=== PATIENT | female | born 1950 | race Caucasian/White ===

== ENCOUNTER 2018-10-12 14:19 | Outpatient (CLI) | payer MEDICARE, BC, SELFPAY ==
--- NOTE | 2018-10-12 14:03 | DI.RAD_ITS ---
SYMPTOMS/DIAGNOSIS: SHOULDER PAIN LEFT SHOULDER: Four views were obtained. There are moderate hypertrophic degenerative changes of the acromioclavicular joint. Prominent inferior humeral head spurring noted and mild marginal osteophyte formation on the glenoid noted. Cartilaginous joint space of the glenohumeral joint appears fairly well maintained. CONCLUSION: Degenerative changes as described above.
== END 2018-10-12 14:39 ==
PROVIDERS: Visit Provider Student in an Organized Health Care Education/Training Program
DX: M19.012 Primary osteoarthritis, left shoulder (principal); M25.512 Pain in left shoulder; M75.82 Other shoulder lesions, left shoulder; I10 Essential (primary) hypertension
CPT/HCPCS: 20610; 99203; 99213; 73030; J1040

== ENCOUNTER 2021-07-09 15:15 | Outpatient (CLI) | payer MEDICARE, SELFPAY ==
--- NOTE | 2021-07-09 15:00 | DI.RAD_ITS ---
Exam(s) XR KNEE LT 3V AP,LAT,TOMMY EXAM: XR KNEE LT 3V AP,LAT,TOMMY CLINICAL HISTORY: knee pain. TECHNIQUE: 2D digital imaging was performed. Three views. COMPARISON: CR XR KNEE RT 3V AP,LAT,TOMMY from 07/09/2021 FINDINGS: BONES: No acute fracture is present. No bony destructive lesion is seen. JOINTS: Severe narrowing, [id number] appearance medial femoral tibial joint and patellofemoral join t. Prominent periarticular spurring. Varus angulation. No joint effusion is seen. IMPRESSION: Severe degenerative changes. DATA REPOSITORY: RADIATION DOSE DELIVERED:
--- NOTE | 2021-07-09 15:00 | DI.RAD_ITS ---
Exam(s) XR KNEE RT 3V AP,LAT,TOMMY EXAM: XR KNEE RT 3V AP,LAT,TOMMY CLINICAL HISTORY: knee pain. TECHNIQUE: 2D digital imaging was performed. Three views. COMPARISON: No exams were available for comparison FINDINGS: BONES: No acute fracture is present. No bony destructive lesion is seen. JOINTS: Severe degenerative changes medial femoral tibial joint and at the patellofemoral joint. Pro minent periarticular spurring. No joint effusion is seen. IMPRESSION: Severe degenerative changes. DATA REPOSITORY: RADIATION DOSE DELIVERED:
== END 2021-07-09 15:16 | disposition home or self-care (01) ==
LOC: DIORS 15:15
PROVIDERS: PCP Family Medicine; Referring Provider Family Medicine; Visit Provider Student in an Organized Health Care Education/Training Program
DX: M17.12 Unilateral primary osteoarthritis, left knee (principal); M75.82 Other shoulder lesions, left shoulder; M25.562 Pain in left knee; M19.012 Primary osteoarthritis, left shoulder; M17.11 Unilateral primary osteoarthritis, right knee
CPT/HCPCS: 20610; 73562; J1040

== ENCOUNTER 2021-08-27 15:29 | Outpatient (CLI) | payer MEDICARE, SELFPAY ==
--- NOTE | 2021-08-27 15:15 | DI.RAD_ITS ---
Exam(s) XR SHOULDER LT COMPLETE 2+V EXAM: XR SHOULDER LT COMPLETE 2+V CLINICAL HISTORY: left shoulder pain. TECHNIQUE: 2D digital imaging was performed. COMPARISON: CR XR shoulder LT complete 2+V from 10/12/2018 FINDINGS: 3 views There is no evidence of acute fracture or dislocation. No abnormal soft tissue calcifications. Main finding is degenerative change in the glenohumeral joint with a moderate size osteophyte off the inferior articular surface of the humeral head again noted. Lesser amount of degenerative change in the AC joint is again noted. No ominous osseous lesions. IMPRESSION: Degenerative changes in the glenohumeral joint again noted. DATA REPOSITORY: RADIATION DOSE DELIVERED:
== END 2021-08-27 15:30 | disposition home or self-care (01) ==
LOC: DIORS 15:30
PROVIDERS: PCP Family Medicine; Visit Provider Student in an Organized Health Care Education/Training Program
DX: M75.82 Other shoulder lesions, left shoulder (principal); M19.012 Primary osteoarthritis, left shoulder; M25.562 Pain in left knee
CPT/HCPCS: 99212; 73030

== ENCOUNTER → 2021-09-06 02:15 | Outpatient (CLI) | payer MEDICARE, SELFPAY ==
--- NOTE | 2021-09-06 15:20 | DI.RAD_ITS ---
Exam(s) RF JOINT INJECTION FLUORO GUID EXAM: RF JOINT INJECTION FLUORO GUID CLINICAL HISTORY: L SHOULDER INJ UNDER FLUORO,PRIMARY OA, TENDINITIS,M75.82,M19.012 TECHNIQUE: Fluoroscopy provided. Radiologist not present. CONTRAST MATERIAL: None COMPARISON: No exams were available for comparison FINDINGS: Fluoroscopy was provided for therapeutic shoulder injection. Submitted image(s) reveal needle placement into the glenohumeral joint via anterior approach and intr a-articular contrast injection Please refer to the procedure report for complete details. Cumulative Dose: Ka,r=0.825 mGy IMPRESSION: RADIATION DOSE DELIVERED:
[2021-09-06] MEDS: Omnipaque 300 MG/ML 10 ML BTL IJ (15:33)
[2021-09-06] MEDS: Bupivacaine 0.5% Pres-Free 30 ML VIAL IJ (15:33)
[2021-09-06] MEDS: methylPREDNISolone ACETATE 80 MG/ML VIAL IM (15:33)
--- NOTE | 2021-09-06 20:43 | W.PROCNOTE ---
Date of service: 09/06/21 Time of Service: 15:35 Procedure Note Date of procedure: 09/06/21 Procedure: Left Shoulder Injection Surgeon/Proceduralist/Physician: Rodolfo Radford Procedure Diagnosis: Left Glenohumeral Arthritis Procedure Indications: Brandy has had persistent pain of the LEFT shoulder. Noninvasive measures have been tried. To serve as both diagnostic and therapeutic, an injection under fluoroscopy was recommended. I had discussed the risks of the procedure and the patient elected to proceed. Procedure Description: Brandy was greeted in the flouroscopy room. The correct side was identified and the consent was reviewed with the patient and signed. The patient was then placed in the supine position on the fluoroscopy table. The LEFT shoulder was then prepped with Chloraprep. The anterior injection starting point was identiifed by bony landmarks and fluoroscopy. The skin and soft tissue in the tract of the injection was anesthetized with 1% Lidocaine. A spinal needle was then inserted deep into the shoulder joint at the level of the recess between the glenoid and superior humeral head. A small amount of Omnipaque solution was injected to confirm intraarticular placement. Once confirmed, the shoulder was injected with 4cc of 0.5% Bupivicaine and 80mg of Depo-Medrol. A bandaid was placed on the injection site. The patient tolerated the procedure well.
== END ==
PROVIDERS: PCP Family Medicine; Visit Provider Student in an Organized Health Care Education/Training Program
DX: M19.012 Primary osteoarthritis, left shoulder (principal); M75.82 Other shoulder lesions, left shoulder; M25.512 Pain in left shoulder
CPT/HCPCS: 20610; 77002; J1040

== ENCOUNTER 2022-05-17 11:06 | Outpatient (CLI) | payer MEDICARE, SELFPAY ==
--- NOTE | 2022-05-17 10:45 | DI.RAD_ITS ---
Exam(s) XR SHOULDER RT COMPLETE 2+V EXAM: XR SHOULDER RT COMPLETE 2+V CLINICAL HISTORY: right shoulder pain. TECHNIQUE: 2D digital imaging was performed of the right shoulder. Two images were obtained. AP an d axillary views were obtained. COMPARISON: None. FINDINGS: BONES: No acute fracture is present. No bony destructive lesion is seen. JOINTS: No dislocation present. Mild degenerative changes are seen at the acromioclavicular joint. T he glenohumeral joint is well maintained. SOFT TISSUE: Normal. IMPRESSION: Degenerative changes in the shoulder. DATA REPOSITORY: RADIATION DOSE DELIVERED:
== END 2022-05-17 11:07 | disposition home or self-care (01) ==
LOC: DIORS 11:07
PROVIDERS: PCP Family Medicine; Referring Provider Family Medicine; Visit Provider Student in an Organized Health Care Education/Training Program
DX: M17.12 Unilateral primary osteoarthritis, left knee; M75.101 Unspecified rotator cuff tear or rupture of right shoulder, not specified as traumatic
CPT/HCPCS: 20610; 73030; J1040

== ENCOUNTER 2022-06-05 01:57 | Outpatient (CLI) | payer MEDICARE, SELFPAY ==
--- NOTE | 2022-06-05 07:30 | DI.MRI_ITS ---
Exam(s) MR UPPER JOINT RT WO EXAM: MR UPPER JOINT RT WO CLINICAL HISTORY: R SHOULDER PAIN,rt rotator cuff tear,m75.101. TECHNIQUE: Multiplanar multisequence MRI was performed. COMPARISON: 17 May 2022 FINDINGS: BONES: There is no fracture or contusion pattern. Degenerative cysts in the humeral head near the gr eater tuberosity. JOINTS:The acromioclavicular joint shows some inferior spurring. Spurring at the tip of the acromion . The glenohumeral joint is shows a small amount of fluid. Subacromial and subdeltoid bursae show small amount of fluid.. TENDONS: Supraspinatus: Full-thickness tear visible near the insertion with few millimeters of retraction of s ome of the posterior fibers.. Infraspinatus: Unremarkable. Subscapularis: Unremarkable. [place]: Unremarkable. Biceps and [place]: Unremarkable. MUSCLES: Unremarkable. GLENOID LABRUM: Unremarkable on this noncontrast examination. SOFT TISSUES: Unremarkable. IMPRESSION: Tear of the supraspinatus tendon. DATA REPOSITORY:
== END 2022-06-05 02:17 ==
LOC: DI 01:57
PROVIDERS: PCP Family Medicine; Visit Provider Student in an Organized Health Care Education/Training Program
DX: M25.511 Pain in right shoulder (principal); M75.101 Unspecified rotator cuff tear or rupture of right shoulder, not specified as traumatic
CPT/HCPCS: 73221

== ENCOUNTER → 2022-06-12 13:44 | Outpatient (BNVA) | payer MEDICARE, SELFPAY | PROVIDERS: PCP Family Medicine; Referring Provider Family Medicine; Visit Provider Student in an Organized Health Care Education/Training Program | DX: S46.011A Strain of muscle(s) and tendon(s) of the rotator cuff of right shoulder, initial encounter (principal); M75.21 Bicipital tendinitis, right shoulder; M75.51 Bursitis of right shoulder; W19.XXXA Unspecified fall, initial encounter | CPT/HCPCS: 99214 ==

== ENCOUNTER 2022-06-27 08:20 | Day surgery (SDC) | payer MEDICARE, SELFPAY ==
[2022-06-27] VITALS (10 sets, daily range): BP systolic 109–157; BP diastolic 46–80; PULSE 43–64; RESP 11–17; TEMP 36.3–36.7; O2SAT 98–100; BMI 43.9
--- NOTE | 2022-06-27 07:20 | PDOC.DSDIS_ITS ---
Date of service: 06/27/22 Time of Service: 14:00 Discharge Plan Disposition Patient Disposition: Home Discharge Details Attending Provider: Sebastián Mason Primary Care Provider: Yasmeen Boswell Home Meds and New Rx's Prescriptions: New naproxen 250 mg tablet 250 - 500 mg PO BID PRNQty: 30 0RF Rx Instructions: take with a meal oxycodone 5 mg tablet 5 - 10 mg PO Q4H MDD 30 mg PRN (Reason: moderate to severe pain) Qty: 18 0RF Continued potassium chloride [Klor-Con M10] 10 MEQ tablet,ER particles/crystals 10 meq PO DAILY Patient Comments: Patient unsure of dose Eliquis 5 MG tablet 5 mg PO BID Qty: 60 0RF furosemide 20 mg tablet 40 mg PO DAILY metoprolol tartrate 100 mg tablet 50 mg PO BID Discharge Instructions Additional Instructions: Surgery: Right shoulder arthroscopy with rotator cuff repair (supraspinatus), biceps tenodesis, extensive debridement, and subacromial decompression. Activity: For 6 weeks, you should keep your arm at your side in a neutral position at all times except for physical therapy. Do not try to lift or raise your arm using your own muscles. You should use the sling whenever you are out of the house. You may have to adjust the abduction pillow or remove it for comfort. At home it is best to remove the sling and rest the arm on a pillow at your side or support the operative side with your other hand. You may allow the arm to dangle at your side. A physical therapy prescription will be sent electronically to begin in about 3 weeks. Prescriptions: Resume Eliquis tomorrow morning Naproxen 250 mg take 1-2 every 12 hours with a meal as needed for moderate pain Oxycodone 5 mg take 1-2 every 4-6 hours as needed for severe pain You may use [id number]-[id number] Tylenol (acetaminophen) as needed for mild pain. These pain medications may be taken all at once or in different combinations as needed. Also, recommend Colace (docusate) as a stool softener as surgery and pain medicine cause constipation. You may try evuj-mhg-foztzkr diphenhydramine (Benadryl) 25-50 mg nightly as a sleep aid Dressings: Remove shoulder bandage after 3 days. Leave the sticky Steri-Strips in place until they fall off or remove them after you shower. Cover the incisions with Band-Aids or leave them open to air. You may shower after 5 da ys. Follow-up: 10-[address] Mason You may take off the leg compression stockings this evening at home. You may also leave them on a few days longer if you have a history of leg swelling or e blane. Let us know right away if you develop any redness, drainage, fevers, chest pain, or trouble breathing. Do not drink alcohol or drive for at least 24 hours after anesthesia. Please call the office during business hours with any questions or concerns. Stand Alone Forms: Anesthesia Discharge Inst., Caroline.Nerve Block Instructions, Nikhil Townsend (DSU) Discharge Orders Discharge Orders: Discharge Order (Routine); Ordered 06/27/22 Ordered By: Sebastián Mason DS: Diagnosis Discharge Diagnosis (1) Traumatic tear of right rotator cuff: Status: Acute
--- NOTE | 2022-06-27 07:20 | ROE_ITS ---
Date of service: 06/27/22 Time of Service: 12:00 Operative Note Operative Note DATE OF PROCEDURE: 06/27/22 PRE-OP DIAGNOSIS: Right: 1. Rotator cuff tear 2. LHB tendinopathy 3. Bursitis POST-OP DIAGNOSIS: same PROCEDURE: Right: 1. Rotator cuff repair, CPT# 48188. This involved repair of the supraspinatus using anchors and sutures to reattach the rotator cuff back to the footprint of the greater tuberosity. 2. Arthroscopic biceps tenodesis, CPT# 80905. This involved arthroscopically suturing and reattaching the long head of the biceps tendon to the proximal humerus at the superior margin of the bicipital groove with a screw at the correct tension. 3. Extensive debridement, CPT# 34244. This involved using arthroscopic hand instruments, power instruments, and radiofrequency instruments to release the long head of the biceps tendon and debride areas of labral tearing, synovitis, and chondromalacia about the central glenoid and humeral head working within the glenohumeral joint anteriorly, superiorly and posteriorly. 4. Subacromial decompression with partial acromioplasty, CPT# 18358. This involved using arthroscopic power instruments and a radiofrequency wand to complete a bursectomy and smooth the undersurface of the acromion. The pier master assistant was medically required in order to help assist in techniques above, which require positioning the arm, holding the arthroscope, and manipulating multiple instruments and sutures at the same time. This cannot be done without the help of an experienced pier master assistant. SURGEON: Sebastián Mason SHOVEL LOG LOADER OPERATOR: Brissa Verduzco ANESTHESIA TYPE: General LMA/ETT and Primary Nerve Block Refer to Anesthesia Record ESTIMATED BLOOD LOSS: 10 PATHOLOGY: none sent COMPLICATIONS: None Patient was transported to: PACU Patient's condition: stable Implants: Arthrex: 4.75mm SwiveLocks x1 and 5.5 mm SwiveLock x1 Indications: The patient was diagnosed with the above conditions and appropriately indicated for surgical intervention. Please see complete medical record for details. Findings: Exam under anesthesia: Full range of motion, no instability Glenohumeral joint: Moderate diffuse degenerative changes including cartilage thinning, fibrillations, and more moderate grade loss central glenoid. Intact subscapularis. Moderate grade partial tearing intra-articular biceps tendon segment with significant synovitis and injection about the biceps tendon anchor with associated SLAP tear. High?grade probably complete from articular side supraspinatus rotator cuff tear with intact infraspinatus. Subacromial space: Moderate bursitis. Irregularity with thin veil nearly intact bursal supraspinatus remnant over the majority of the footprint. Able to probe from lateral and exposed somewhat small anterior posterior, central full- thickness delaminated frayed and thinned supraspinatus rotator cuff tear. No significant extension anteriorly or posteriorly Procedure Description: In the operating room, general anesthesia was induced. Bilateral shoulders were examined. The patient was positioned in the beachchair position. All bony prominences were well-padded. Preoperative antibiotics were administered. The shoulder was prepped and draped in the usual sterile fashion. The correct patient, procedure, and side of the procedure were all verified prior to incision. Starting through the posterior portal a standard complete diagnostic arthroscopy was performed of the glenohumeral joint including inspection of the long head of the biceps, anterior and superior labrum, subscapularis tendon, supraspinatus and infraspinatus tendons, and axillary recess. The glenoid and humeral head cartilage as well as the posterior labrum were inspected from an anterior viewing portal. Significant findings and interventions noted above. An all-arthroscopic suprapectoral biceps tenodesis was performed through an anterior portal using a Loop N Tack method with a SutureTape FiberLink cinched around and through the tendon. The biceps was tenotomized from the labrum and fixated with a suture anchor at the superior margin of the bicipital groove. The undersized punch was used to localize placement of a 4.75 mm anchor. Starting through the posterior portal, the arthroscope was directed into the subacromial space. A lateral 50 yard line lateral portal was created. A combination of power instruments and a radiofrequency ablator were used to debride bursitis anteriorly, posteriorly, and laterally as well as expose and smooth bone spurring on the undersurface of the acromion. The coracoacromial ligament was partially released. The bursectomy was completed viewing laterally and working from posteriorly and the rotator cuff was thoroughly inspected with findings noted above. The supraspinatus tear was carefully identified, debrided using power and hand tools to a stable margin, and arm position optimized for repair. Given the intact tissue anteriorly and posteriorly with minimal retraction, decision was m nataly to proceed with a single lateral row anchor repair. The bone tendon interface was thoroughly prepared to optimize healing. The self retrieving suture passer was used to place an inverted horizontal mattress FiberTape repair stitch through the central aspect of the tear and an additional suture tape FiberLink in cinch mode at the posterior most margin. The repair sutures were used to confirm provisional reduction. The undersized punch used to localize placement of the suture anchor. The repair sutures were loaded on a 5.5 mm SwiveLock with appropriate tension on the repair. The repair was stable through motion and probing. The shoulder was drained of arthroscopic fluid. All portal sites were copiously irrigated. These incisions were closed using 3-0 Monocryl in a buried fashion and then covered with Mastisol, Steri-Strips, Xeroform, dry gauze, and ABDs. The dressings were covered and secured with Medipore tape. The operative extremity was placed into a sling for immobilization. The patient awoke from anesthesia without complication and was transferred to the recovery room in a stable condition.
--- NOTE | 2022-06-27 07:49 | W.ANESPRE ---
General Info Date of Service Date Performed: 06/27/22 Height: 5 ft 6 in Weight: 123.3 kg Body Mass Index (BMI): 43.9 Surgical Procedure: Operation Date: 06/27/22 11:10 Proposed Procedure Side Surgeon p Shoulder Rotator Cuff Arthroscopic w/Extensive Debridement, Biceps Tenodesis, Subacromial Decompression Right Sebastián Mason MD Meds Allergies and Home Medications Allergies Allergy/AdvReac Type Severity Reaction Status Date / Time codeine AdvReac Mild Nausea Verified 06/27/22 08:34 Home Medication Medication Instructions Recorded apixaban 5 mg tablet (Eliquis) 5 mg PO BID #60 tabs 06/04/17 potassium chloride 10 mEq 10 meq PO DAILY 06/04/17 tablet,extended release(part/cryst) (Klor-Con M) furosemide 20 mg tablet 40 mg PO DAILY 07/09/21 metoprolol tartrate 100 mg tablet 50 mg PO BID 07/09/21 Current Visit Medications: Current Medications Generic Name Dose Route Start Last Admin Trade Name Freq PRN Reason Stop Dose Admin Ringer's Solution 1,000 mls @ 30 mls/hr 06/27/22 06:00 IV 07/26/22 23:59 INFUSION ALFONZO Cefazolin Sodium 3,000 mg/ 100 mls @ 200 mls/hr 06/27/22 06:00 Sodium Chloride IVPB 06/27/22 16:00 PREOP ALFONZO IV Miscellaneous Supplies 1 each 06/27/22 06:00 Iv Access IV 07/26/22 23:59 DIRECTED ALFONZO Oxycodone HCl 0 mg 06/27/22 07:18 Oxycodone 5 Mg Tab PO Q3H PRN PRN Pain Sodium Chloride 0 ml 06/27/22 06:00 Normal Saline Flush 10 Ml Syr IV 07/26/22 23:59 PRN PRN Sodium Chloride 0 ml 06/27/22 06:00 Normal Saline 10 Ml Vial IJ 07/26/22 23:59 DIRECTED PRN Sterile Water 0 ml 06/27/22 06:00 Water,Injection,Sterile 10 Ml Vial IJ 07/26/22 23:59 DIRECTED PRN PFSH Active Problems Active Problems: Problem Status Onset Code Hypertension I10 Atrial fibrillation I48.91 Obesity E66.9 Tendinitis of left rotator cuff M75.82 Primary osteoarthritis, left shoulder M19.012 Primary osteoarthritis of left knee M17.12 Primary osteoarthritis of right knee M17.11 Arthritis of left glenohumeral joint M19.012 Traumatic tear of right rotator cuff 04/11/22 S46.011A Bursitis of right shoulder M75.51 Tendonitis of long head of biceps brachii of right shoulder M75.21 Medical History Medical History 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 hyperlipoproteinemia MADHU (obstructive sleep apnea) Surgical History Surgical History (Updated 06/24/22 @ 15:23 by Aston Beasley) History of cardiac catheterization x2-no stent placement-2016 Hx of tubal ligation S/P appendectomy S/P cholecystectomy Tobacco Smoking/Tobacco Use Status: Former Tobacco Use Alcohol Alcohol Intake: current Alcohol intake frequency: 0-2 drinks per day Substance Use Substance use: Never Substance use type: does not use Vital Signs and Lab Results Vital Signs Most Recent Vital Signs in EMR: Temp Pulse Resp BP Pulse Ox 36.7 C 52 L 17 145/80 H 100 06/27/22 08:38 06/27/22 08:38 06/27/22 08:38 06/27/22 08:38 06/27/22 08:38 Lab Results Blood Type / Crossmatch: No Data to Display Complete Blood Count: No Data to Display Complete Metabolic Panel: No Data to Display Liver Function Panel: No Data to Display Coagulation Panel: No Data to Display Cardiac Panel: No Data to Display Arterial Blood Gas: No Data to Display Venous Blood Gas: No Data to Display Pancreas Panel: No Data to Display Thyroid Panel: No Data to Display Infectious Disease: No Data to Display Blood Cultures: No Data to Display Toxicology Panel: No Data to Display Imaging and Studies Imaging and Studies Study information below may be from another EMR and interpreted by another provider. Please see original notes in EMR for more complete details. Echocardiogram Summary: 06/25/2017: EF 66%, Mild MR/TR/GA with RVSP 36. Pulmonary Function Summary: 11/15/2015: Restrictive disease, normal diffusion capacity, reduced FVC/FEV1 Anesthesia Assessment and Plan Anesthesia History Personal History: Other Family History: No Family History of Anesthesia Complications Exercise Tolerance Exercise Tolerance: Metabolic Equivalents>4 Pertinent Negatives Pertinent Negatives: No Symptoms of GERD Cardiac & Pulmonary Exam Cardiac Exam: Normal S1/S2 Heart Sounds Pulmonary Exam: Clear Bilateral Breath Sounds Implantable Cardiac Device Does patient have a Pacemaker or an ICD?: No Airway Exam Known Difficult Airway: No Mallampati Class: 2 Mouth Opening: Normal (> 3cm) Thyromental Distance: Greater than 3 cm Neck Range of Motion: Full ROM Neck Circumference: Normal Teeth Condition: Normal Dentition ASA Classification ASA Score: ASA 3 Emergency Case?: No NPO Status NPO Status: NPO Clears >2 hours, Solids >8 hours Anesthesia Plan Resuscitation Status: Full Code Anesthesia Technique: General Anesthesia Airway Planned: Endotracheal Tube Pain Management: Surgeon and patient request nerve block Monitors Used: Standard Monitors
[2022-06-27] MEDS: Lactated Ringers 1,000 ML 30 ML IV (09:09)
[2022-06-27] MEDS: ceFAZolin 3,000 MG in Normal Saline 100 ML 200 MG IVPB (10:46)
--- NOTE | 2022-06-27 11:49 | W.ANESNERVE ---
Nerve Block Single Injection Procedure Date and Time Date Performed: 06/27/22 Procedure Start: 10:45 Location Where Procedure Performed Procedure Location: Day Surgery Unit Reason Performed: Postoperative Analgesia Requesting Provider: Sebastián Mason Timeout Performed Timeout Performed: Yes Monitoring Used ECG, Blood Pressure, SpO2 and See EMR for corresponding vital signs Sterility Sterility: Hand Hygiene, Surgical Cap, Surgical Mask, Sterile Gloves and Chlorhexidine Sedation Given During Procedure Sedation Given (Indicate Dose Given): Versed IV Dose:: 2mg and Precedex IV Dose:: 8mcg Patient Mental Status Patient Mental Status: Sedate with meaningful communication Nerve Block 1st Nerve Block: Laterality: Right Block Type: Interscalene Ultrasound Image Saved?: Yes Needle / Catheter Used: 100mm SonoPlex II Local Anesthetic Bolus (Indicate Dose Given): Lidocaine used for local infiltration of skin, Injected in 3-5ml increments after negative blood aspiration, Bupivacaine 0.5% Dose:: 10ml and Exparel Dose:: 10ml Additives (Indicate Dose Given): None Ultrasound: Sterile probe cover and gel used Nerve Stimulator: Supplement to Ultrasound use, Expected parasthesia or motor response elicited and No twitch or parasthesia noted < 0.5 mA Paresthesia: None Procedure Tolerated: No Complications and Patient tolerated well Procedure Outcome: Successful Procedure Comment: Discussed risk given existing elevated R hemidiaphragm. Block may exacerbate this and patient understands risks to include admission/oxygen use or worse case scenario mechanical ventilation, even though I believe this will be unlikely. She wishes to proceed with block. Performed By: Gabriele Clemons
[2022-06-27] MEDS: EPINEPHrine 30 MG/30 ML VIAL (12:29)
[2022-06-27] MEDS: Albuterol 2.5 MG/3 ML INH SOLN VIAL UPD (13:35)
[2022-06-27] MEDS: fentaNYL 100 MCG/2 ML VIAL IVP (13:50)
--- NOTE | 2022-06-27 13:57 | W.ANESPOSTOP ---
Postoperative Evaluation Date, Time and Location Date Performed: 06/27/22 Time Performed: 13:58 Patient Location: PACU Vital Signs Most Recent Imported Vital Signs: Most Recent Vital Signs Temp Pulse Resp BP Pulse Ox 36.4 C L 48 L 11 L 147/76 H 100 06/27/22 13:37 06/27/22 13:37 06/27/22 13:37 06/27/22 13:37 06/27/22 13:37 Pain Score Most Recent Pain Score: Most Recent Pain Score Pain Level 5 06/27/22 13:37 Assessment Mental Status: Awake (Alert & Oriented to Patient Baseline) Airway and Respiratory Function: Patent airway with normal (patient baseline) respiratory exam Cardiovascular Function: Hemodynamically Stable Hydration Status: Adequately Hydrated Nausea & Vomiting: No Nausea or Vomiting Pain: Pain is tolerable per patient Peripheral Nerve Block: Regional nerve block not resolved at time of post operative discharge Postoperative Comments:: On Room air with good SpO2. Hand/fingers are tingly and discomfort tolerable per patient.
== END 2022-06-27 15:15 | disposition home or self-care (01) ==
PROVIDERS: PCP Family Medicine; Visit Provider Student in an Organized Health Care Education/Training Program
PROC: (CPT 29827; principal; 2022-06-27 11:00)
DX: S46.011A Strain of muscle(s) and tendon(s) of the rotator cuff of right shoulder, initial encounter (principal); M75.21 Bicipital tendinitis, right shoulder; M75.51 Bursitis of right shoulder; X58.XXXA Exposure to other specified factors, initial encounter
CPT/HCPCS: 29827; 29826; 29823; 29828; 76942; J0690; J1100; J1885; J2250; J2370; J2405; J2704; J3010; J7613

== ENCOUNTER → 2022-07-09 12:56 | Outpatient (BNVA) | payer MEDICARE, SELFPAY | PROVIDERS: PCP Family Medicine; Referring Provider Family Medicine; Visit Provider Physician Assistant | DX: Z47.89 Encounter for other orthopedic aftercare (principal); M25.511 Pain in right shoulder ==

== ENCOUNTER → 2022-08-27 12:55 | Outpatient (BNVA) | payer MEDICARE, SELFPAY | PROVIDERS: PCP Family Medicine; Referring Provider Family Medicine; Visit Provider Student in an Organized Health Care Education/Training Program | DX: Z47.89 Encounter for other orthopedic aftercare (principal); M25.611 Stiffness of right shoulder, not elsewhere classified ==

== ENCOUNTER → 2022-09-10 13:29 | Outpatient (BNVA) | payer MEDICARE, SELFPAY | PROVIDERS: PCP Family Medicine; Referring Provider Family Medicine | DX: M17.12 Unilateral primary osteoarthritis, left knee (principal) | CPT/HCPCS: 20610; J1040 ==

== ENCOUNTER → 2022-10-23 13:54 | Outpatient (BNVA) | payer MEDICARE, SELFPAY | PROVIDERS: PCP Family Medicine; Referring Provider Family Medicine; Visit Provider Student in an Organized Health Care Education/Training Program | DX: Z47.89 Encounter for other orthopedic aftercare (principal); M75.21 Bicipital tendinitis, right shoulder | CPT/HCPCS: 99213 ==

== ENCOUNTER → 2022-10-30 00:27 | Outpatient (CLI) | payer MEDICARE, SELFPAY ==
--- NOTE | 2022-10-30 13:30 | DI.MRI_ITS ---
Exam(s) MR CERVICAL SPINE WO EXAM: MR CERVICAL SPINE WO CLINICAL HISTORY: ATAXIA, R27.0, RT ARM WEAKNESS, HARD FALL FEW MONTHS AGO ONTO SIDE OF NECK TECHNIQUE: Multiplanar multisequence MRI of the cervical spine was performed without intravenous con trast. COMPARISON: No exams were available for comparison FINDINGS: BONES: Vertebral body heights are maintained. Alignment is normal. Bone marrow signal intensity is wi thin normal limits. Hemangioma noted in T1. CERVICAL CORD: Craniovertebral junction is unremarkable. The cervical cord is normal size and signal intensity. SOFT TISSUES: Unremarkable. C2-3: No disc herniation or bulge is identified. No evidence of neural foraminal narrowing. No signi ficant central canal stenosis. C3-4: Mild loss of disc height and small endplate osteophytes. No evidence of neural foraminal narro wing. No significant central canal stenosis. C4-5: No disc herniation or bulge is identified. Moderate left neural foraminal narrowing. No signifi cant central canal stenosis. C5-6: Moderate loss of disc height and circumferential endplate osteophytes.Moderate bilateral neural foraminal narrowing. No significant central canal stenosis. C6-7: Moderate loss of disc height and circumferential osteophytes. Moderate bilateral neural forami nal narrowing. No significant central canal stenosis. C7-T1: No disc herniation or bulge is identified. No evidence of neural foraminal narrowing. No signi ficant central canal stenosis. IMPRESSION: No evidence of disc herniation. Disc osteophytes C4-5 through C6-7 cause neural foraminal narrowing. No central canal stenosis. DATA REPOSITORY:
== END ==
PROVIDERS: PCP Family Medicine; Visit Provider Psychiatry & Neurology Neurology
DX: M99.31 Osseous stenosis of neural canal of cervical region (principal); W19.XXXD Unspecified fall, subsequent encounter
CPT/HCPCS: 72141

== ENCOUNTER 2022-11-25 11:20 | Outpatient (CLI) | payer MEDICARE, SELFPAY ==
--- NOTE | 2022-11-25 09:45 | DI.RAD_ITS ---
Exam(s) XR KNEE LT 1V XR STANDING ALIGNMENT EXAM: XR STANDING ALIGNMENT and XR knee LT 1 V CLINICAL HISTORY: left knee DJD. TECHNIQUE: 2D digital imaging was performed. Five images were obtained. COMPARISON: CR XR KNEE RT 3V AP,LAT,TOMMY from 07/09/2021 CR XR KNEE LT 3V AP,LAT,TOMMY from 07/09/2021 CR XR KNEE LT 1V from 11/25/2022 FINDINGS: BONES: The hips are well maintained. There are marked degenerative changes of the knees bilaterally contain cysts seen of joint space narrowing and osteophytes. In the left knee, findings are most mar ked in the medial femoral tibial and patellofemoral joint. There is a small left joint effusion. Th e ankles are well maintained.There is no significant leg length discrepancy. SOFT TISSUE: Normal. IMPRESSION: Marked osteoarthritis of the knees bilaterally. DATA REPOSITORY: RADIATION DOSE DELIVERED:
== END 2022-11-25 11:21 | disposition home or self-care (01) ==
LOC: DIORS 11:21
PROVIDERS: PCP Family Medicine; Referring Provider Family Medicine; Visit Provider Student in an Organized Health Care Education/Training Program
DX: M17.12 Unilateral primary osteoarthritis, left knee (principal)
CPT/HCPCS: 99214; 73560; 77073

== ENCOUNTER 2022-11-28 05:14 | Outpatient (CLI) | payer MEDICARE, SELFPAY ==
[2022-11-28 12:28] LABS: HCT 37.1 % (36.0-46.0); HGB 11.7 g/dL (11.2-15.7); MCH 28.4 pg (27.0-33.0); MCHC 31.5 % (32.0-36.0); MCV 90 fL (80-95); MPV 11.8 fL (8.0-11.0); Platelet Count 190 10^3/uL (130-400); RBC 4.12 10^6/uL (3.93-5.22); RDW 13.8 % (11.7-14.6); RDW-SD 45.5 fL; WBC 6.59 10^3/uL (4.4-10.8)
[2022-11-28 12:42] LABS: Anion Gap 8.6 mmol/L (3-11); BUN 17 mg/dL (7-18); CO2 30.4 mmol/L (21.0-32.0); CREATININE 0.8 mg/dL (0.55-1.02); Calcium 9.8 mg/dL (8.5-10.1); Chloride 104 mmol/L (98-107); Estimated GFR 79.22 (mL/min/1.73m2); Glucose 75 mg/dL (74-106); Potassium 3.6 mmol/L (3.5-5.1); Sodium 143 mmol/L (136-145)
== END 2022-11-28 05:15 | disposition home or self-care (01) ==
LOC: LOS 05:15
PROVIDERS: PCP Family Medicine; Visit Provider Student in an Organized Health Care Education/Training Program
DX: M17.12 Unilateral primary osteoarthritis, left knee (principal); M25.562 Pain in left knee; Z01.818 Encounter for other preprocedural examination; Z01.812 Encounter for preprocedural laboratory examination
CPT/HCPCS: 36415; 80048; 85027

== ENCOUNTER 2022-12-18 08:28 | Day surgery (SDC) | payer MEDICARE, SELFPAY ==
[2022-12-18] VITALS (9 sets, daily range): BP systolic 114–181; BP diastolic 42–100; PULSE 49–59; RESP 11–19; TEMP 36–36.6; O2SAT 95–99; BMI 43.7
--- NOTE | 2022-12-18 07:34 | W.PM.DSUDISC ---
Date of service: 12/18/22 Time of Service: 07:34 Discharge Plan Disposition Patient Disposition: Home Condition: Good Discharge Details Reason For Visit: L TKR Attending Provider: Rodolfo Radford Primary Care Provider: Yasmeen Boswell Home Meds and New Rx's Prescriptions: New acetaminophen 500 mg tablet 1,000 mg PO TID Qty: 90 3RF celecoxib 200 mg capsule 200 mg PO BID Qty: 60 0RF pantoprazole 40 mg tablet,delayed release (DR/EC) 40 mg PO DAILY Qty: 30 0RF dexamethasone 4 mg tablet 4 mg PO DAILY Qty: 2 0RF gabapentin 300 mg capsule 300 mg PO QHS Qty: 14 0RF oxycodone 5 mg tablet 5 mg PO Q4H MDD 6 tabs PRN (Reason: pain) Qty: 20 0RF Continued potassium chloride [Klor-Con M10] 10 MEQ tablet,ER particles/crystals 10 meq PO DAILY Patient Comments: Patient unsure of dose Eliquis 5 MG tablet 5 mg PO BID Qty: 60 0RF furosemide 20 mg tablet 40 mg PO DAILY metoprolol tartrate 100 mg tablet 50 mg PO BID Discharge Instructions Additional Instructions: Total Knee Discharge Instructions Activity: The most important activity is to walk and to work on gentle motion (both flexion and extension). You should try to take short walks a few times a day. It is important that when resting you work on keeping the knee straight. Avoid putting a pillow behind the knee as this will encourage flexion. Work on range of motion exercises as provided by Physical Therapy. - Start outpatient physical therapy within 2 weeks. - You should wear the NACHO hose on both legs for 2 weeks. You may remove these at night. You may also use any compression sock in place of the NACOH hose. - Utilize [employer] to review exercises, see videos on exercises and obtain basic information pertaining to your surgery and your recovery. Dressing: Remove the Remi wrap by 2 days after your surgery and put on the NACHO stocking given to you from the hospital. Keep the surgical dressing (underneath the REMI wrap) in place for at least one week. After the first week it may be removed and replaced with light gauze and tape or nothing. The wound and dressing may get wet after 3 days but avoid soaking the dressing or otherwise it will need to be changed. Many people prefer covering the dressing with cling wrap (saran wrap) to minimize it from getting soaked. If it gets wet, just pat dry. If it starts to peel off then it will need to be changed. Medications: - You should take Tylenol and anti-inflammatory Celebrex as your primary pain control medications. If the Celebrex is too expensive or not covered, please call the office for another alternative (Advil/Ibuprofen or Naproxen/Aleve) - You have been prescribed a stronger pain medication Oxycodone for breakthrough pain, take as needed as prescribed. - You have also been prescribed a stomach acid reduction agent Pantoprozole to help reduce stomach acid and reflux. - You have been prescribed Gabapentin to take at night for restlessness and nerve pain. - You will be taking your eliquis for DVT prevention starting tomorrow morning. - You have also been prescribed Decadron to take to control post-operative nausea and pain. You will start this tomorrow. - If you have constipation you should take Colace or Miralax (both [id number]). It takes most people 3-4 days to have a bowel movement. Follow-up: 2 weeks If you have any acute concerns or questions, please do not hesitate to contact the office at [phone]. You may contact Dr. Radford with any questions after hours through the hospital at [phone] or on his cell phone at [phone]. Stand Alone Forms: Anesthesia Discharge InstCharlene, Caroline.Nerve Block Instructions, Nikhil Townsend ([facility]) Referrals: Rodolfo Radford MD [ [facility] STAFF PHYSICIAN] - Equipment/Supplies: Walker Activity:: Activity as Tolerated Shower/Bathe:: 72 hours Diet:: As Tolerated Discharge Orders Discharge Orders: Discharge Order (Routine); Ordered 12/18/22 Ordered By: Rodolfo Radford DS: Diagnosis Discharge Diagnosis (1) Primary osteoarthritis of left knee: Status: Acute
[2022-12-18] MEDS: Gabapentin 300 MG CAP PO (09:00)
[2022-12-18] MEDS: Celecoxib 200 MG CAP 400 MG PO (09:00)
[2022-12-18] MEDS: Acetaminophen 500 MG TAB 1000 MG PO (09:00)
[2022-12-18] MEDS: Lactated Ringers 1,000 ML 80 ML IV (09:01)
--- NOTE | 2022-12-18 09:47 | W.ANESPRE ---
General Info Date of Service Date Performed: 12/18/22 Height: 5 ft 6 in Weight: 122.8 kg Body Mass Index (BMI): 43.7 Surgical Procedure: Operation Date: 12/18/22 11:40 Proposed Procedure Side Surgeon p Knee Total Arthroplasty w/OrthAlign Left Rodolfo Radford MD Meds Allergies and Home Medications Allergies Allergy/AdvReac Type Severity Reaction Status Date / Time codeine AdvReac Mild Nausea Verified 12/18/22 08:39 Home Medication Medication Instructions Recorded apixaban 5 mg tablet (Eliquis) 5 mg PO BID #60 tabs 06/04/17 potassium chloride 10 mEq 10 meq PO DAILY 06/04/17 tablet,extended release(part/cryst) (Klor-Con M) furosemide 20 mg tablet 40 mg PO DAILY 07/09/21 metoprolol tartrate 100 mg tablet 50 mg PO BID 07/09/21 acetaminophen 500 mg tablet 1,000 mg (2 x 500 mg) PO TID #90 12/18/22 tabs celecoxib 200 mg capsule 200 mg PO BID #60 caps 12/18/22 dexamethasone 4 mg tablet 4 mg PO DAILY #2 tabs 12/18/22 gabapentin 300 mg capsule 300 mg PO QHS #14 caps 12/18/22 oxycodone 5 mg tablet 5 mg PO Q4H PRN pain #20 tabs 12/18/22 pantoprazole 40 mg tablet,delayed 40 mg PO DAILY #30 tabs 12/18/22 release Current Visit Medications: Current Medications Generic Name Dose Route Start Last Admin Trade Name Freq PRN Reason Stop Dose Admin Acetaminophen 1,000 mg 12/18/22 06:00 12/18/22 09:00 Acetaminophen 500 Mg Tab PO 01/17/23 05:59 1,000 mg PREOP ALFONZO Administration Acetaminophen 1,000 mg 12/18/22 07:33 Acetaminophen 500 Mg Tab PO 01/17/23 07:32 TID PRN PRN Analgesia Celecoxib 400 mg 12/18/22 06:00 12/18/22 09:00 Celecoxib 200 Mg Cap PO 01/17/23 05:59 400 mg PREOP ALFONZO Administration Docusate Sodium 100 mg 12/18/22 07:33 Docusate Sodium 100 Mg Cap PO 01/17/23 07:32 BID PRN PRN Constipation Gabapentin 300 mg 12/18/22 06:00 12/18/22 09:00 Gabapentin 300 Mg Cap PO 01/17/23 05:59 300 mg PREOP ALFONZO Administration Tranexamic Acid 1,000 mg/ 60 mls @ 360 mls/hr 12/18/22 06:00 Sodium Chloride IVPB 01/17/23 05:59 PREOP ALFONZO Ringer's Solution 1,000 mls @ 80 mls/hr 12/18/22 06:00 12/18/22 09:01 IV 01/16/23 23:59 80 mls/hr INFUSION ALFONZO Administration Cefazolin Sodium/Dextrose 2 gm in 50 mls @ 100 mls/hr 12/18/22 06:00 Ancef Duplex IVPB 01/16/23 23:59 PREOP ALFONZO IV Miscellaneous Supplies 1 each 12/18/22 06:00 Iv Access IV 01/16/23 23:59 DIRECTED ALFONZO Ondansetron HCl 4 mg 12/18/22 07:33 Ondansetron 4 Mg/2 Ml Vial IVP 01/17/23 07:32 Q6H PRN PRN Nausea Oxycodone HCl 0 mg 12/18/22 07:33 Oxycodone 5 Mg Tab PO 01/17/23 07:32 Q3H PRN PRN Pain Polyethylene Glycol 17 gm 12/18/22 07:33 Polyethylene Glycol 3350 17 Gm Packet PO 01/17/23 07:32 BID PRN PRN Constipation Sodium Chloride 0 ml 12/18/22 06:00 Normal Saline Flush 10 Ml Syr IV 01/16/23 23:59 PRN PRN Sodium Chloride 0 ml 12/18/22 06:00 Normal Saline 10 Ml Vial IJ 01/16/23 23:59 DIRECTED PRN Sterile Water 0 ml 12/18/22 06:00 Water,Injection,Sterile 10 Ml Vial IJ 01/16/23 23:59 DIRECTED PRN PFSH Active Problems Active Problems: Problem Status Onset Code Hypertension I10 Atrial fibrillation I48.91 Obesity E66.9 Tendinitis of left rotator cuff M75.82 Primary osteoarthritis, left shoulder M19.012 Primary osteoarthritis of left knee M17.12 Primary osteoarthritis of right knee M17.11 Arthritis of left glenohumeral joint M19.012 Traumatic tear of right rotator cuff 04/11/22 S46.011A Bursitis of right shoulder M75.51 Tendonitis of long head of biceps brachii of right shoulder M75.21 Medical History Medical History 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 hyperlipoproteinemia MADHU (obstructive sleep apnea) Surgical History Surgical History History of cardiac catheterization x2-no stent placement-2016 Hx of tubal ligation S/P appendectomy S/P cholecystectomy Tobacco Smoking/Tobacco Use Status: Former Tobacco Use Alcohol Alcohol Intake: current Alcohol intake frequency: 0-2 drinks per day Alcohol type: wine Substance Use Substance use: Never Substance use type: does not use Vital Signs and Lab Results Vital Signs Most Recent Vital Signs in EMR: Most Recent Vital Signs Temp Pulse Resp BP Pulse Ox 36.2 C L 54 L 18 181/100 H 99 12/18/22 08:30 12/18/22 08:30 12/18/22 08:30 12/18/22 08:30 12/18/22 08:30 Vital Signs Comment Vital Signs Comment:: Repeat blood pressure: 165/81 Lab Results Blood Type / Crossmatch: No Data to Display Complete Blood Count: White Blood Count 6.59 10^3/uL (4.4-10.8) 11/28/22 10:43 Red Blood Count 4.12 10^6/uL (3.93-5.22) 11/28/22 10:43 Hemoglobin 11.7 g/dL (11.2-15.7) 11/28/22 10:43 Hematocrit 37.1 % (36.0-46.0) 11/28/22 10:43 Platelet Count 190 10^3/uL (130-400) 11/28/22 10:43 Complete Metabolic Panel: Sodium 143 mmol/L (136-145) 11/28/22 10:43 Potassium 3.6 mmol/L (3.5-5.1) 11/28/22 10:43 Chloride 104 mmol/L (98-107) 11/28/22 10:43 Carbon Dioxide 30.4 mmol/L (21.0-32.0) 11/28/22 10:43 BUN 17 mg/dL (7-18) 11/28/22 10:43 Creatinine 0.8 mg/dL (0.55-1.02) 11/28/22 10:43 Est GFR (CKD-EPI 2020) 79.22 (mL/min/1.73m2) 11/28/22 10:43 Calcium 9.8 mg/dL (8.5-10.1) 11/28/22 10:43 Glucose 75 mg/dL (74-106) 11/28/22 10:43 Liver Function Panel: No Data to Display Coagulation Panel: No Data to Display Cardiac Panel: No Data to Display Arterial Blood Gas: No Data to Display Venous Blood Gas: No Data to Display Pancreas Panel: No Data to Display Thyroid Panel: No Data to Display Infectious Disease: No Data to Display Blood Cultures: No Data to Display Toxicology Panel: No Data to Display Imaging and Studies Imaging and Studies Study information below may be from another EMR and interpreted by another provider. Please see original notes in EMR for more complete details. Echocardiogram Summary: 06/25/2017: EF 66%, Mild MR/TR/DC with RVSP 36. Pulmonary Function Summary: 11/15/2015: Restrictive disease, normal diffusion capacity, reduced FVC/FEV1 Anesthesia Assessment and Plan Anesthesia History Personal History: No History of Anesthesia Complications Family History: No Family History of Anesthesia Complications Exercise Tolerance Exercise Tolerance: Metabolic Equivalents>4 Pertinent Negatives Pertinent Negatives: No Symptoms of GERD Cardiac & Pulmonary Exam Cardiac Exam: Normal S1/S2 Heart Sounds Pulmonary Exam: Clear Bilateral Breath Sounds Implantable Cardiac Device Does patient have a Pacemaker or an ICD?: No Airway Exam Known Difficult Airway: No Mallampati Class: 2 Mouth Opening: Normal (> 3cm) Thyromental Distance: Greater than 3 cm Neck Range of Motion: Full ROM Neck Circumference: Normal Teeth Condition: Normal Dentition ASA Classification ASA Score: ASA 3 Emergency Case?: No NPO Status NPO Status: NPO Clears >2 hours, Solids >8 hours Anesthesia Plan Resuscitation Status: Full Code Anesthesia Technique: Spinal Anesthesia Airway Planned: Natural Airway Pain Management: Surgeon and patient request nerve block Monitors Used: Standard Monitors
[2022-12-18] MEDS: ceFAZolin 2 GM/50 ML BAG IVPB (10:35)
--- NOTE | 2022-12-18 11:25 | W.ANESNERVE ---
Nerve Block Single Injection Procedure Date and Time Date Performed: 12/18/22 Procedure Start: 10:11 Location Where Procedure Performed Procedure Location: Day Surgery Unit Reason Performed: Postoperative Analgesia Requesting Provider: Rodolfo Radford Timeout Performed Timeout Performed: Yes Monitoring Used ECG, Blood Pressure, SpO2 and See EMR for corresponding vital signs Sterility Sterility: Hand Hygiene, Surgical Cap, Surgical Mask, Sterile Gloves and Chlorhexidine Sedation Given During Procedure Sedation Given (Indicate Dose Given): Versed IV Dose:: 2mg Patient Mental Status Patient Mental Status: Awake Nerve Block 1st Nerve Block: Laterality: Left Block Type: Adductor Canal Ultrasound Image Saved?: Yes Needle / Catheter Used: 120mm SonoPlex II Local Anesthetic Bolus (Indicate Dose Given): Lidocaine used for local infiltration of skin, Injected in 3-5ml increments after negative blood aspiration and Bupivacaine 0.25% Dose:: 15mL Additives (Indicate Dose Given): None Ultrasound: Sterile probe cover and gel used Nerve Stimulator: Supplement to Ultrasound use and No twitch or parasthesia noted < 0.5 mA Paresthesia: None Procedure Tolerated: No Complications Procedure Outcome: Successful Performed By: Swetha Oates
--- NOTE | 2022-12-18 12:52 | W.PM.OP ---
Date of service: 12/18/22 Time of Service: 11:05 Operative Note Operative Note DATE OF PROCEDURE: 12/18/22 PRE-OP DIAGNOSIS: Left Knee Osteoarthritis POST-OP DIAGNOSIS: same PROCEDURE: Left Total Knee Replacement SURGEON: Rodolfo Radford SHIPPING RECEIVING MANAGER: Gabriela Wright ANESTHESIA TYPE: Spinal Refer to Anesthesia Record ESTIMATED BLOOD LOSS: 200 PATHOLOGY: none sent TOURNIQUET TIME: 0 COMPLICATIONS: None Patient was transported to: PACU Patient's condition: stable Implants: 1. Depuy Attune Cementless Cruciate Retaining Femoral Component, Size 6 2. Depuy Attune Cementless Fixed Bearing Tibial Component, Size 5 3. Depuy Attune 6x7 CR/FB Poly 4. Depuy Attune Patellar Component, Size 35 Indications: I have seen Brandy in clinic for symptoms of knee arthritis, confirmed with radiographic findings. She has exhausted nonoperative methods and was having significant limitations in daily function and desired better function and less pain. I discussed the technical details of a knee replacement. I explained the risks of the procedure to include, but not limited to, bleeding, infection, pain, stiffness, fracture, damage to nerves and vessels, damage to muscles and tendons, loosening, need for repeat procedure, blood clot and cardiopulmonary demise. Despite these risks, Brandy elected to proceed. Findings: There was significant signs of arthritis throughout the knee with complete loss of cartilage throughout all 3 compartments. Procedure Description: Brandy was greeted in the preoperative holding area where the correct side was identified and marked. The consent was reviewed with the patient and signed. The history and physical was updated. All questions were answered. Preoperative medications were administered: Acetaminophen 1000mg, Celebrex 400mg, and Gabapentin 300mg. An adductor canal block was then administered by the anesthesia team in the PACU. Brandy was taken back to the operating room. A spinal anesthestic was then administered. The patient was placed into the supine position on the operating room table. A nonsterile tourniquet was placed high onto the leg but only used for cementing. Posts were placed for positioning during the procedure. All bony prominences were well padded. Prophylactic antibiotics in the form of Cefazolin were administered. 1g of Tranxemic Acid was given intravenously within 30 minutes of incision. The left leg was then prepped with Chloraprep and draped in a standard fashion with impervious stockinette. A second prep with Chloraprep was performed prior to application of Iodine impregnated skin protection. A timeout to confirm correct identity, side and site, procedure, allergies, anesthesia, and medical concerns was performed. With the knee in some flexion, a midline incision was made overlying the knee. Full thickness skin flaps were raised once the extensor mechanism was encountered. These were raised medially and laterally. Any bleeding was controlled with electrocautery. Once the extensor mechanism was fully exposed, a medial parapatellar arthrotomy was performed in a flexed position. All bleeding from the arthrotomy and the geniculate arteries was coagulated. A medial subperiosteal peel was performed with electrocautery to the midcoronal plane. Due to the significant varus deformity the entire medial tibial plateau was exposed. The fat pad was removed while keeping the patellar tendon protected. The anterior distal femur synovium was removed for later visualization. The ACL and PCL were resected and the anterior horn of the lateral meniscus was transected. The knee was then flexed with the patella everted. Large osteophytes from the tibia were removed. Large osteophytes from the femur were removed. There was significant loss of cartilage throughout the entirety of the knee. Using a step drill, and based on preoperative templating, the femoral canal was entered. This was done with a step drill without any difficulty. The intramedullary distal femoral cut guide was inserted, set to a 5 degree valgus cut and 9mm cut thickness. The distal femoral cut guide was then held in position and pinned. With the soft tissues protected, the distal cut was performed. This was passed over a few times to ensure a planar cut. I then turned attention to the tibia. The extramedullary guide was placed onto the leg. The distal aspect was slid medial to adjust for position of center of ankle and stay in line with shaft of the tibia. Approximately 3-5 degrees of posterior slope was kept in the proximal cutting guide. The center of the guide was aligned with the PCL. The stylus was used to assess cut thickness. The medial side, most involved side, was set for a 4mm cut. This was then held in position and pinned into place with 2 additional pins and a cross pin for stability. The medial and lateral collateral ligaments were protected and the cut was performed. With this completed, it was assessed and noted to be of appropriate dimensions. The guide was removed. A spacer block was inserted and the knee was brought into extension. The 6mm spacer block provided full extension, without hyperextension and with stability of both the medial and lateral collateral ligaments was assessed. The pins from the femur and the tibia were then removed. The distal femur was then sized. The anterior stylus was placed onto the lateral ridge of the anterior femur. This indicated a size 6 femur. The external rotation of the guide was adjusted to 3 degrees to match the epicondylar axis, perpendicular to Wilbarger?s line. The 4-in-1 cutting guide was the placed. The posterior medial femur cut was evaluated and appeared of good thickness. The spacer block was inserted underneath the cutting guide and stability was confirmed in 90 degrees of flexion. An rebekah wing was used to confirm appropriate position of the anterior cut to avoid notching. This cutting guide was ensured to be flush on the cut surface and then pinned into place with headed pins. While protecting the soft tissues, quad tendon, and collateral ligaments, the anterior and posterior cuts were performed with a saw. The central two pins were removed and the posterior and anterior chamfers were cut next. The notch-cutting guide was placed. This was pinned to lateralize the femoral component as much as possible while keeping it flush on the cut surface. This was then pinned into position. A reciprocating saw was used to make the notch cut. A rasp smoothed the cut surfaces. The medial and lateral menisci were removed. A trial femoral component was then inserted, impacted down to the cut surfaces, and the lug holes were drilled. A provisional trial tibial component was placed and the knee was brought through range of motion. The polyethylene was trialed until there was good flexion and extension with excellent stability to the medial and lateral collaterals. The patella was tracking without thumbs. A size 7mm polyethylene component provided the best range of motion and stability with less than 2mm gapping with medial and lateral stress and full extension without significant hyperextension. The tibial cut surface was fully exposed. The tibia was then sized as a 5. The tibia had been previously marked during trialing to correspond to the center of the tibial component to help with rotation. The trial was aligned to this gabriela, approximately rotated to the medial 1/3rd of the tibial tubercle. The trial was pinned into place. The tibia was prepared with a reamer and a keel punch and lug holes. The knee was then brought into extension and the patella was measured as 22mm. Using the patellar clamp and cut guide, this was resected to a flat surface with at least 13mm of thickness remaining. The size 35 patella fit the best. This was oriented and then clamped into position. The lugs were drilled. The trial components were removed. The final components were opened on the back table. The periosteal and capsular tissues, especially posteriorly, around the knee were then systematically injected with a periarticular cocktail consisting of 246mg of Ropivacaine, 0.5mg of Epinephrine, 0.08mg of Clonidine, and 30mg of Ketorolac, diluted to 100cc. On the back table, with the implants opened, the cement was mixed. One batch of high viscosity cement was prepared with vacuum assistance. After the cement was ready a small amount was placed on the cut surface of the patella and the patellar button was clamped into position and held. While the cement was hardening, the cementless knee components were placed. Starting with the tibial component, the tibia was subluxed anteriorly and the lug holes of the component were lined up. The tibia was then impacted with an impactor and mallet until the tibial component was in contact with the tibia. The final polyethylene component was inserted. Then, the femoral component was inserted. The lug holes were aligned and the component was impacted into position. The knee was irrigated with Surgiphor Betadine solution. This was allowed to sit in the knee for 3 minutes and then it was irrigated out with saline. After the cement had finally cured, approximately 15min, the clamp was removed from the patella and the knee was taken through range of motion. The patella was tracking with a no-thumbs technique. The capsule was then reapproximated with a No. 1 Vicryl at multiple locations. The capsule was finally closed with a No. 2 Stratafix, barbed suture. The second dosing of 1g TXA was started. Deep tissues were then reapproximated with 0 Vicryl and 2-0 Vicryl. The skin was closed with a running 3-0 Monocryl in a subcuticular fashion. This was reinforced with skin glue. A Mepilex silver dressing was applied along with a [id number] JARROD wrap. A CryoCuff was applied. Brandy was transferred to the hospital bed without difficulty an suffering no apparent complication. Brandy has a good prognosis. Physical therapy will start today and without restrictions, weight-bearing as tolerated. Her home dose of Eliquis will be used for DVT prophylaxis.
[2022-12-18] MEDS: fentaNYL 100 MCG/2 ML VIAL IVP ×2 (13:08→13:30)
--- NOTE | 2022-12-18 13:39 | W.ANESPOSTOP ---
Postoperative Evaluation Date, Time and Location Date Performed: 12/18/22 Time Performed: 13:39 Patient Location: PACU Vital Signs Most Recent Imported Vital Signs: Most Recent Vital Signs Temp Pulse Resp BP Pulse Ox 36.1 C L 51 L 11 L 139/62 98 12/18/22 13:24 12/18/22 13:24 12/18/22 13:24 12/18/22 13:24 12/18/22 13:24 Pain Score Most Recent Pain Score: Most Recent Pain Score Pain Level 7 12/18/22 13:24 Assessment Mental Status: Awake (Alert & Oriented to Patient Baseline) Airway and Respiratory Function: Patent airway with normal (patient baseline) respiratory exam Cardiovascular Function: Hemodynamically Stable Hydration Status: Adequately Hydrated Nausea & Vomiting: No Nausea or Vomiting Pain: Pain is tolerable per patient Peripheral Nerve Block: Regional nerve block not resolved at time of post operative discharge
[2022-12-18] MEDS: oxyCODONE 5 MG TAB PO (14:01)
[2022-12-18] MEDS: Ondansetron 4 MG/2 ML VIAL IVP (15:52)
[2022-12-18] MEDS: Normal Saline 10 ML VIAL IJ (15:59)
--- NOTE | 2022-12-18 16:18 | PT.INIE ---
PT Notes Visit Reasons: L TKR Physical Therapy Day Surgery Initial Evaluation Date: 12/18/2022 Referring Doctor: Rodolfo Radford MD PT Orders: PT CONSULT: S/P Ortho Surgery Precautions: WBAT on the L LE with AD. Patient Profile/Admitting Diagnosis: Brandy is a 72-year-old female with primary unilateral osteoarthritis of the left knee and is status post left total knee arthroplasty on postoperative day 0. PMHX: All Active Problems Hypertension (Acute) Atrial fibrillation (Chronic) Obesity (Chronic) Tendinitis of left rotator cuff (Acute) Primary osteoarthritis, left shoulder (Acute) Steroid injection: 07/09/2021; 10/12/2018Primary osteoarthritis of left knee (Acute) Most recent steroid injection: 05/17/22; 07/09/2021 Multiple injections previously including Synvisc and steroid injections Primary osteoarthritis of right knee (Acute) Multiple injections previously including Synvisc and steroid injections Arthritis of left glenohumeral joint (Acute) Traumatic tear of right rotator cuff (Acute 04/11/22) s/p Right shoulder arthroscopy with RTC repair 06/27/22 Bursitis of right shoulder (Acute) Tendonitis of long head of biceps brachii of right shoulder (Acute) Medical History 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 Equipment Owned/DME: [facility] Subjective: Reports mild nausea that did not limit today's session and mobility assessment. Denies headache, chest pain, and dizziness throughout. Objective: General Observation: JARROD wraps to left LE. Cryocuff on L knee. TEDs to right leg. Mental Status: Alert and oriented x4 Pain: 2-3/10 in the L knee ROM: Left Lower Extremity: Hip flexion WFL. Hip abduction WFL. Knee flexion about 30 degrees to 100 degrees. Knee extension about -30 degrees ankle dorsiflexion WFL. Ankle plantarflexion WFL. Right Lower Extremity: Hip flexion WFL. Hip abduction WFL. Knee flexion WFL. Ankle dorsiflexion WFL. Ankle plantarflexion WFL. Strength: Left Lower Extremity: Hip flexors 4-/5. Hip abductors 4-/5. Knee flexors 3-/5. Knee extensors 3-/5. Ankle dorsiflexors 5/5. Ankle plantarflexors 5/5. Right Lower Extremity:Hip flexors 5/5. Hip abductors 5/5. Knee flexors 5/5. Knee extensors 5/5. Ankle dorsiflexors 5/5. Ankle plantarflexors 5/5. Sensation: Intact as to pain and light pressure bilateral lower extremities Bed Mobility/Transfers: Supine to sit standby assist with cues provided for the use of BUE as needed for safety Sit to stand contact guard assist with cues provided for the use of BUE as needed for safety Stand to sit standby assist with cues provided for the use of BUE as needed for safety Bed to chair stand by assist with cues provided for the use of BUE as needed for safety Gait: Facilitated safe and correct performance of level surface ambulation covering a distance of 150 feet using step through heel?toe gait pattern using the front wheeled walker with standby assist of PT. Good left quad activation. Stairs: Guided patient through safe navigation of 6 x 4 inch steps and 4 x 6 inch steps holding onto 1 rail and a single-point cane with another hand with step to gait pattern only contact-guard assist with minimal cues given for movement sequence and AD management. Balance: Static Sitting: Normal Dynamic Sitting: Normal Static Standing: Fair Dynamic Standing: Fair Special Tests: Mobility Limitations Standardized Measure [facility] AM-PAC 6 clicks Basic Mobility Inpatient Short Form: Raw Score: 23 CMS Score: 11% deficit Informed Consent/Education: Patient instructed in purpose of PT consult. Packet containing TKA exercise protocol has been given to patient. Education and training on initial set of exercises that can be done at home have been completed with patient.trained patient with correct performance of exercises below to maximize motor control, joint flexibility, soft tissue extensibility of the L knee musculature: Access Code: [email or web address] URL: [email or web address] Date: 12/20/2022 Prepared by: Jessica Alejandro Exercises - Supine Quad Set - 1 x daily - 7 x weekly - 1 sets - 10 reps - 5 hold - Supine Heel Slide - 1 x daily - 7 x weekly - 1 sets - 10 reps - 5 hold - Supine Ankle Pumps - 1 x daily - 7 x weekly - 1 sets - 10 reps - 5 hold - Small Range Straight Leg Raise - 1 x daily - 7 x weekly - 1 sets - 10 reps - 5 hold - Seated March - 1 x daily - 7 x weekly - 1 sets - 10 reps - 5 hold Assessment: Patient requires the use of a front wheel walker for all mobility ADL performance or to maximize independence and reduce fall risk. Patient presents with clinical signs and symptoms consistent with current/admitting diagnoses that have resulted to mobility limitations, gait instability, generalized weakness, and impairment of motor control as demonstrated by the following impairment level findings: 1. Decreased strength to left knee major muscle groups 2. Impaired standing balance 3. Limitation of joint range of motion in left knee Impairments are contributing to the following functional limitations: 1. Inability to safely ambulate without assistive device 2. Increase completion time for mobility ADL performance 3. Increased fall risk Patient is assessed as a 60303 moderate complexity based on the following: History: 72-year-old female with impairment level findings, functional limitations, and past medical history as indicated above Examination: Demonstrable impairment in strength, balance, and mobility level with underlying impairments and functional limitations as documented above Presentation: Evolving Decision Makin moderate complexity Goals: N/A. PT evaluation and 1-2 treatment sessions only for functional mobility training using recommended AD and for HEP instruction. Plan of Care/Treatment Plan: N/A. PT evaluation and 1-2 treatment session only for functional mobility training using recommended AD and for HEP instruction. DISCHARGE RECOMMENDATIONS: Home when medically cleared by orthopedic surgeon. Recommend outpatient PT services in order to optimize functional mobility outcomes and facilitate return to independent community ambulation without an assistive device. TREATMENT CODE/TIME: 76690 x20 minutes for 1 unit, 9753 0 x 17 minutes for 1 unit beginning at 16:38 PM. Thank you for the opportunity to participate in the care of this patient. Jessica Alejandro PT, DPT, CLT [facility], [place]
== END 2022-12-18 08:29 | disposition home or self-care (01) ==
LOC: SUR 08:28
PROVIDERS: PCP Family Medicine; Visit Provider Student in an Organized Health Care Education/Training Program
PROC: (CPT 27447; principal; 2022-12-18 11:30)
DX: M17.12 Unilateral primary osteoarthritis, left knee (principal); I10 Essential (primary) hypertension; I48.91 Unspecified atrial fibrillation; G47.33 Obstructive sleep apnea (adult) (pediatric); E66.9 Obesity, unspecified; Z68.41 Body mass index [BMI] 40.0-44.9, adult
CPT/HCPCS: 27447; C1776; 76942; 97162; 97530; J0690; J1100; J2001; J2371; J2405; J2704; J3010

== ENCOUNTER 2023-01-02 11:12 | Outpatient (CLI) | payer MEDICARE, SELFPAY ==
--- NOTE | 2023-01-02 10:45 | DI.RAD_ITS ---
Exam(s) XR KNEE LT 1V XR STANDING ALIGNMENT EXAM: XR STANDING ALIGNMENT and XR knee LT 1 V CLINICAL HISTORY: 1ST POST OP L TKA. TECHNIQUE: 2D digital imaging was performed. Five images were obtained. COMPARISON: CR XR STANDING ALIGNMENT from 11/25/2022 CR XR KNEE LT 1V from 11/25/2022 FINDINGS: BONES: The hips are well maintained. The patient is now status post left total knee replacement. Th e orthopedic hardware appears in good position. No suspicious lucencies are seen around the orthoped ic hardware. There are marked degenerative changes seen in the right knee particularly the medial fe moral tibial joint characterized by joint space narrowing and osteophytes. The ankles are well maint ained.There is no significant leg length discrepancy. SOFT TISSUE: Normal. IMPRESSION: 1. Status post left total knee replacement. 2. Degenerative changes in the right knee. DATA REPOSITORY: RADIATION DOSE DELIVERED:
== END 2023-01-02 11:13 | disposition home or self-care (01) ==
LOC: DIORS 11:12
PROVIDERS: PCP Family Medicine; Referring Provider Family Medicine; Visit Provider Student in an Organized Health Care Education/Training Program
DX: Z96.652 Presence of left artificial knee joint (principal); Z47.1 Aftercare following joint replacement surgery
CPT/HCPCS: 73560; 77073

== ENCOUNTER → 2023-01-20 02:58 | Outpatient (CLI) | payer MEDICARE, SELFPAY ==
--- NOTE | 2023-01-20 | DI.MRI_ITS ---
Exam(s) MR ORBIT FACIAL NECK WO/W EXAM: MR ORBIT FACIAL NECK WO/W CLINICAL HISTORY: ABNL MRI, R93.89, LYMPHAENOPATHY NECK, RECHECK TECHNIQUE: Multiplanar multisequence MRI was performed. CONTRAST MATERIAL: IV Contrast: 20 mL of Magnevist contrast administered. COMPARISON: MR NECK OTHER from 06/19/2022 FINDINGS: Parotids/submandibular/thyroid gland: stable small nodule in the right thyroid lobe. No follow-up r ecommended. Lymphadenopathy: Mostly stable lymph nodes in the left supraclavicular region. Other smaller scattere d nodes are seen on both sides of the neck at all levels. No new adenopathy. Previously noted serpig inous vascular channels the supraclavicular region are also roughly in unchanged. This area measures approximately 5 centimeters in diameter.. Carotids/Jugular: Normal flow voids. Soft tissues: The floor the mouth is unremarkable. The epiglottis and vocal cords are within normal limits. Images through both lung apices are unremarkable. Cystic lesion in the subcutaneous fat in th e lower right side of the neck again noted Cervical Spine: Degenerative changes C4-5 through C6-7. No evidence of disc herniation. Marrow sign al normal. Cord signal normal. IMPRESSION: Roughly stable appearance, given differences in technique, of left supraclavicular lymph nodes with a djacent vascular channels. No discrete mass identified. DATA REPOSITORY:
[2023-01-20] MEDS: Normal Saline Flush 10 ML SYR IVP (11:02)
[2023-01-20] MEDS: Gadoterate meglumine 20 ML SYRINGE IVP (11:03)
== END ==
PROVIDERS: PCP Family Medicine; Visit Provider Specialist/Technologist Athletic Trainer
DX: R93.89 Abnormal findings on diagnostic imaging of other specified body structures (principal)
CPT/HCPCS: 70543

== ENCOUNTER → 2023-01-30 10:52 | Outpatient (BNVA) | payer MEDICARE, SELFPAY | PROVIDERS: PCP Family Medicine; Referring Provider Family Medicine | DX: Z47.1 Aftercare following joint replacement surgery (principal); Z96.652 Presence of left artificial knee joint ==

== ENCOUNTER → 2023-03-20 11:16 | Outpatient (BNVA) | payer MEDICARE, SELFPAY | PROVIDERS: PCP Family Medicine; Referring Provider Family Medicine; Visit Provider Student in an Organized Health Care Education/Training Program | DX: Z47.1 Aftercare following joint replacement surgery (principal); Z96.652 Presence of left artificial knee joint ==

== ENCOUNTER → 2023-05-22 10:31 | Outpatient (BNVA) | payer MEDICARE, SELFPAY | PROVIDERS: PCP Family Medicine; Referring Provider Family Medicine; Visit Provider Student in an Organized Health Care Education/Training Program | DX: M76.32 Iliotibial band syndrome, left leg (principal); Z96.652 Presence of left artificial knee joint | CPT/HCPCS: 20550; J1030 ==

== ENCOUNTER → 2023-08-21 10:37 | Outpatient (BNVA) | payer MEDICARE, SELFPAY | PROVIDERS: PCP Pediatrics; Referring Provider Pediatrics | DX: Z47.1 Aftercare following joint replacement surgery (principal); Z96.652 Presence of left artificial knee joint | CPT/HCPCS: 99213 ==

== ENCOUNTER 2023-12-22 15:45 | Outpatient (CLI) | payer MEDICARE, SELFPAY ==
--- NOTE | 2023-12-22 10:45 | DI.RAD_ITS ---
Exam(s) XR KNEE LT 2V AP,LAT EXAM: XR KNEE LT 2V AP,LAT CLINICAL HISTORY: ANNUAL F/U L TKA. TECHNIQUE: 2D digital imaging was performed. Two images were obtained. AP and lateral views were ob tained. COMPARISON: CR XR KNEE LT 1V from 01/02/2023 CR XR STANDING ALIGNMENT from 01/02/2023 FINDINGS: BONES: There are stable post operative changes of a left total knee replacement present. No fracture or dislocation. JOINTS: The orthopedic hardware is in good position. No evidence of hardware loosening. SOFT TISSUE: Normal. IMPRESSION: Stable left total knee replacement. DATA REPOSITORY: RADIATION DOSE DELIVERED:
== END 2023-12-22 15:46 | disposition home or self-care (01) ==
LOC: DIORS 15:45
PROVIDERS: PCP Pediatrics; Visit Provider Student in an Organized Health Care Education/Training Program
DX: Z47.1 Aftercare following joint replacement surgery (principal); Z96.652 Presence of left artificial knee joint
CPT/HCPCS: 99213; 73560

== ENCOUNTER 2024-03-08 03:07 | Outpatient (CLI) | payer MEDICARE, SELFPAY ==
--- NOTE | 2024-03-08 08:58 | ST.MBS_ITS ---
Date of Service Date of service: 03/08/24 Time of Service: 09:00 Modified Barium Swallow Study Findings: Video fluoroscopic Swallowing Evaluation (VFSE) / Modified Barium Swallow Study (MBSS) Speech Language Pathology Report Patient referred for VFSE/MBSS from Dr. Ac given dysphagia, vocal changes, sore throat, food catching HPI & Patient report of function: Patient is a 73 year old female with longstanding dysphagia and dysphonia symptoms. She reports longstanding irritation in throat/need for lozenges, though symptoms mostly began a few months ago after she experienced a dry cough that persisted for approximately 1.5 months with associated throat pain. This throat pain continues despite resolution of cough. She also notes that her voice will get harsh/raspy with vocal use, feels her sinuses are irritated, and is experiencing dysphagia to solids (meat/pills/chunkier food like broccoli). These foods become stuck in thyroid region and can be relieved by sips of liquid, hard swallows, and lozenges. No hx pneumonia in past 2-3 years. IMPRESSIONS: Oral pharyngeal swallow function is grossly WNL for age. The bolus reaches the pyriforms prior to swallow initiation, however this is considered functional for age. There is no evidence of penetration, aspiration, or pharyngeal retention. With solids, patient demonstrated increased effort while swallowing pudding- suspect this may be due to xerostomia/sticky nature of the bolus. Following solids, she did complain of sensation of pharyngeal retention, though no pharyngeal residue appreciated on fluoro. With esophageal sweep, there was some mild esophageal retention in sternal region, which cleared with subsequent sips liquid. 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 Anticipate symptoms may be due to xerostomia (on furosemide, poor hydration habits/drinks mostly coffee) and/or transferred sensation from esophageal functioning. If symptoms persist, consider further GI workup. In regards to voice - Brandy is slated to see ENT/Dr Montilla later this morning for nasolaryngoscopy. Pending findings, she may benefit from voice intervention. Patient appears to be at low risk for potential aspiration PNA and/or pulmonary compromise and low risk for malnutrition, low risk for dehydration. Diet mo dification is not indicated; non-oral nutrition is not indicated. RECOMMENDATIONS: Diet Texture Recommendation:? IDDSI LEVEL SOLIDS 7-Regular Solids - Add moisture to foods (sauces/gravies/condiments) LIQUIDS 0-Thin Liquids MEDICATIONS As tolerated. Consider taking in spoonful applesauce if sticking Risk Management Strategies:? Small/slow bites sips Chew thoroughly Add moisture to food Upright for all PO and at least 30 min afterwards PLAN: Eval only for dysphagia Will await new referrals for voice therapy from ENT if indicated OBJECTIVE Videofluoroscopic Swallow Evaluation (VFSE/MBSS) was conducted in the lateral and [id number] projection by Speech-Language Pathologist, in collaboration with Radiologist, to evaluate oropharyngeal swallow function. Anatomic view under fluoroscopy: WFL PO Barium Contrast Trials Oral barium water-soluble contrast was administered as follows: IDDSI Level 0 Varibar thin liquid (40% w/v) IDDSI Level 2 Varibar nectar thick/mildly thick liquid (40% w/v) IDDSI Level 4 Varibar pudding/pureed/extremely thick (40% w/v) IDDSI Level 7 Regular Solid: 1/2 melany cracker coated in 3 mL Varibar pudding 13 mm barium tablet taken with Thin Liquids. MBSImP Component Scores: COMPONENT Scale SCORE 1 Lip closure (0-4) 0 Resulted in no labial escape 2 Hold Position (0-3) 0 Maintained a cohesive bolus between tongue to palatal seal 3 Bolus Preparation (0-4) 0 Resulted in timely and efficient chewing and mashing 4 Bolus Transport (0-4) 0 Was with brisk tongue motion 5 Oral Residue (0-4) 0 Was not observed. There was complete oral clearance 6 Swallow Initiation (0-4) 3 Occurred when the bolus head was in the pyriform sinuses 7 Soft Palate Elevation (0-4) 0 Resulted in no bolus between soft palate and the pharyngeal wall 8 Laryngeal Elevation (0-3) 0 Demonstrated complete superior movement of thyroid cartilage with complete approximation of arytenoids to epiglottic petiole 9 Anterior Hyoid Motion (0-2) 0 Demonstrated complete anterior movement 10 Epiglottic Movement (0-2) 0 Resulted in complete inversion 11 Laryngeal Closure (0-2) 0 Was complete with no air or contrast in laryngeal vestibule 12 Pharyngeal Stripping Wave (0-2) 0 Was present and complete 13 Pharyngeal Contraction (0-3) 0 Was complete 14 PES Opening (0-3) 0 Was completely distended and complete duration with no obstruction of flow 15 Tongue Base Retraction (0-4) 0 Allowed no contrast between the tongue base and posterior pharyngeal wall 16 Pharyngeal Residue (0-4) 0 Was not present. There was complete pharyngeal clearance 17 Esophageal Clearance (0-4) 0 Was complete, with only a coating of contrast, if any Results: COMPONENT Scale SCORE 1 Oral Score (0-18) 3 2 Pharyngeal Score (0-29) 0 3 Esophageal Score (0-4) 0 Penetration-Aspiration Scale: COMPONENT Scale SCORE 1 Thin liquid (1-8) 1 Contrast did not enter the airway 2 [place] thick (1-8) 1 Contrast did not enter the airway 3 Honey thick (1-8) NA 4 Pudding thick (1-8) 1 Contrast did not enter the airway 5 Cookie (1-8) 1 Contrast did not enter the airway Thank you for allowing us to take part in this patient's care. Please feel free to contact the [facility] Speech Language Pathology Department with any questions/concerns.
--- NOTE | 2024-03-08 09:29 | DI.RAD_ITS ---
Exam(s) RF MODIFIED SPEECH BA SWALLOW TECHNIQUE: Modified barium swallow was performed in conjunction with speech pathology. CONTRAST MATERIAL: Oral barium contrast was administered. COMPARISON: No exams were available for comparison FINDINGS: Note that this is not a dedicated esophagram, distal esophagus not evaluated. There is no evidence of aspiration or penetration of thick or thin liquids, barium coated cookie or b arium pudding. Speech pathology report to follow. The patient was able to swallow barium tablet with out difficulty. IMPRESSION: No evidence of aspiration or penetration. RADIATION DOSE DELIVERED: tk Conley=7.92 mGy
[2024-03-08] MEDS: Barium Sulfate 700 MG TAB PO (09:30)
[2024-03-08] MEDS: Barium Sulfate 81% w/w for Oral Suspension 148 GM BTL 80 GM PO (09:31)
[2024-03-08] MEDS: Barium Sulfate Oral Paste 40% W/V 230 ML TUBE 10 ML PO (09:31)
[2024-03-08] MEDS: Barium Sulfate 40% W/V 240 ML BTL 60 ML PO (09:32)
== END 2024-03-08 03:27 ==
LOC: DI 03:07
PROVIDERS: PCP Pediatrics; Visit Provider Family Medicine
DX: R13.10 Dysphagia, unspecified (principal)
CPT/HCPCS: 92526; 74221

== ENCOUNTER → 2024-04-01 09:31 | Outpatient (BNVA) | payer MEDICARE, SELFPAY | PROVIDERS: PCP Pediatrics; Referring Provider Pediatrics; Visit Provider Physician Assistant | DX: M17.11 Unilateral primary osteoarthritis, right knee (principal) | CPT/HCPCS: 20610; J1010 ==

== ENCOUNTER 2024-07-06 14:19 | Outpatient (CLI) | payer MEDICARE, SELFPAY ==
--- NOTE | 2024-07-06 13:45 | DI.RAD_ITS ---
Exam(s) XR SHOULDER LT COMPLETE 2+V EXAM: XR SHOULDER LT COMPLETE 2+V CLINICAL HISTORY: LEFT SHOULDER PAIN. TECHNIQUE: 2D digital imaging was performed. Three views. COMPARISON: None FINDINGS: BONES: No acute fracture is present. No bony destructive lesion is seen. Degenerative subchondral cy sts in the humeral head. JOINTS: No dislocation present. Glenohumeral joint space is maintained. There is mild spurring at t he glenoid is well as spurring from the inferior humeral head. No significant spurring at the AC boo nt. SOFT TISSUE: Normal. IMPRESSION: Mild degenerative changes. DATA REPOSITORY: RADIATION DOSE DELIVERED:
== END 2024-07-06 14:20 | disposition home or self-care (01) ==
LOC: DIORS 14:19
PROVIDERS: PCP Pediatrics; Referring Provider Pediatrics; Visit Provider Student in an Organized Health Care Education/Training Program
DX: M19.012 Primary osteoarthritis, left shoulder
CPT/HCPCS: 99214; 73030

== ENCOUNTER 2024-08-05 02:39 | Outpatient (CLI) | payer MEDICARE, SELFPAY ==
--- NOTE | 2024-08-05 08:53 | DI.RAD_ITS ---
Exam(s) RF JOINT INJ. FLUORO GUID RAD EXAM: RF JOINT INJ. FLUORO GUID RAD CLINICAL HISTORY: L SHOULDER PAIN,arthritis lt glenohumeral joint,m19.012,fluoro guided. The Patien t has had persistent left shoulder pain. Noninvasive measures have been tried. To serve as both sabra gnostic and therapeutic, an injection under fluoroscopy was recommended. The risks of the procedure were discussed with their Orthopedic provider and the patient elected to proceed. TECHNIQUE: 2D and realtime digital imaging was performed. CONTRAST MATERIAL: Water soluble contrast was utilized. COMPARISON: No exams were available for comparison FINDINGS: The Patient was greeted in the fluoroscopy room. The correct side was identified and the consent was reviewed with the patient and was signed. The patient was properly positioned on the fluoroscopy ta ble. The left shoulderwas then prepped and draped. The left shoulder injection starting point was i dentified by the bony landmarks and fluoroscopy. The skin and soft tissue in the tract of the inject ion was anesthetized with 1% Bupivacaine. A spinal needle was then inserted into the left shoulder j oint at the level of the glenohumeral joint under fluoroscopic guidance. A small amount of Omnipaque solution was injected to confirm intraarticular placement. Once confirmed, the left shoulder was in jected with 5cc of a solution containing 0.5% Bupivacaiine and 40 mg of Depo-Medrol. A bandaid was p laced on the injection site. The patient tolerated the procedure well and left the department in goo d condition. IMPRESSION: Successful left shoulder injection. RADIATION DOSE DELIVERED: Kar=3.43 mGy
[2024-08-05] MEDS: methylPREDNISolone ACETATE 40 MG/ML VIAL IM (15:04)
[2024-08-05] MEDS: Omnipaque 300 MG/ML 10 ML BTL IJ (15:11)
[2024-08-05] MEDS: Bupivacaine 0.5% Pres-Free 10 ML VIAL IJ (15:12)
== END 2024-08-05 02:59 ==
LOC: DI 02:39
PROVIDERS: PCP Pediatrics; Visit Provider Student in an Organized Health Care Education/Training Program
DX: M19.012 Primary osteoarthritis, left shoulder (principal)
CPT/HCPCS: 20610; 77002; J0665; J1010

== ENCOUNTER 2024-09-23 13:50 | Outpatient (CLI) | payer MEDICARE, SELFPAY ==
--- NOTE | 2024-09-23 06:00 | DI.RAD_ITS ---
Exam(s) XR PAIN CLINIC FLUORO JOINT IN EXAM: XR PAIN CLINIC FLUORO JOINT IN CLINICAL HISTORY: DX: Right Knee Osteoarthritis. TECHNIQUE: Fluoroscopy was provided for the referring physician for guidance with performing pain clinic injection procedure. COMPARISON: No exams were available for comparison FINDINGS: Please see procedure note for details. Fluoro time: 58.1 seconds RADIATION DOSE DELIVERED: tk Conley=6.92 mGy
[2024-09-23 14:02] VITALS: BP 159/63; PULSE 61; RESP 20; TEMP 37; O2SAT 100
[2024-09-23 14:26] VITALS: PULSE 61; O2SAT 100
[2024-09-23 14:30] VITALS: PULSE 64; O2SAT 99
[2024-09-23 14:40] VITALS: PULSE 64; O2SAT 100
--- NOTE | 2024-09-23 14:50 | PDOC.PAIN_ITS ---
Date of service: 09/23/24 Time of Service: 14:50 Pain Managment Procedure Note Procedure Note Procedure Note: PROCEDURE NOTE RIGHT GENICULAR NERVE BLOCKS Date of Service: September 23, 2024 Patient: Brandy Gao Provider: Ramirez Jean DO, MPH Brandy Gao has been referred to the [facility] for Right genicular nerve block. Pre-operative diagnosis: Pain in right knee M25.561 Post-operative diagnosis: Same Pre-Procedure Pain: VAS=4/10 COMMENTS: She was sent in directly for this procedure as she cannot have TKA right now and can no longer take Ibuprofen. She has pain to the right knee and osteoarthritis to the medial compartment of her right knee joint. We discussed this procedure in detail. PROCEDURE: 1. Block of the Superolateral genicular branch from the vastus lateralis 2. Block of the Superomedial genicular branch from the vastus medialis 3. Block of the Inferomedial genicular branch from the saphenous nerve 4. Block of the Terminal branch of the nerve vastus intermedius Brandy was interviewed and the medical record reviewed. There were no medical, pharmacologic, radiographic or other structural contraindications to attempting fluoroscopically guided Right genicular nerve block. Risks and potential side effects as well as potential benefit of the procedure were reviewed with Brandy Gao , and the patient's voiced concerns were addressed. After I believed that the patient was completely informed, the printed consent form was signed. Standard time-out procedure was performed. After a thorough Chlorhexadine preparation of the skin and draping the skin entry points for approaching Right superolateral genicular nerve, the superomedial genicular nerve, nerve of the vastus intermedius and the inferomed ial genicular was identified under the most advantageous fluoroscopic view and marked. Next, 3.5 25G spinal needle was advanced to os at the location of the specific nerve root using fluoroscopic guidance. Next 0.5 cc of 0.5% Bupivacain was injected at each site. There was no unusual discomfort expressed by Brandy. The needles were withdrawn without difficulty. Brandy was observed and was without hemodynamic, neurologic, or allergic reactions.? Fluoroscopic images were digitally archived. Brandy's vital signs were stable throughout the procedure and were as recorded in the docflowsheet by the nursing staff. If given, dosages of intravenous drugs for anxiolysis and analgesia were documented in MAR. Follow up plans and appointments were discussed. Brandy was instructed to keep careful note of how the usual pain was modified by these injections. Specifically, Brandy was asked to keep a pain diary for the next 4 hours using a numeric pain scale of 0-10 and report these results. Post procedure instruction was given as documented in nursing documentation and having met discharge criteria, Brandy was discharged from the [facility]. COMMENTS: No apparent complications. Post-procedure pain: VAS= 0/10. Brandy will call back with 0-4 hour post-procedure pain scores. I personally completed the entire procedure. RAMIREZ JEAN DO, MPH ABPM&R - Subspecialty board certification in Pain Medicine [facility] Coding Conscious Sedation used for procedure: No CPT Codes: GNB 3-4 Nerve, Block - 48228 ([id number] ~G) Right side Additional Codes: Date of Service (08763) Date of service: 09/23/24 Diagnoses: Right knee osteoarthritis
[2024-09-23] MEDS: Omnipaque 240 MG/ML 50 ML BTL IJ (14:51)
[2024-09-23] MEDS: Bupivacaine 0.5% Pres-Free 10 ML VIAL IJ (14:51)
[2024-09-23] MEDS: Nerve Block Tray 1 EACH MC (14:52)
== END 2024-09-23 13:51 | disposition home or self-care (01) ==
LOC: PC 13:50
PROVIDERS: PCP Pediatrics; Visit Provider Preventive Medicine Occupational Medicine
DX: M25.561 Pain in right knee (principal); M17.11 Unilateral primary osteoarthritis, right knee
CPT/HCPCS: 64454; 77002; J0665; Q9967

== ENCOUNTER 2024-11-04 07:43 | Outpatient (CLI) | payer MEDICARE, SELFPAY ==
[2024-11-04] VITALS (16 sets, daily range): BP systolic 135–166; BP diastolic 59–75; PULSE 56–68; RESP 10–24; TEMP 36.1; O2SAT 96–100
[2024-11-04] MEDS: Midazolam 2 MG/2 ML VIAL IVP (09:00)
[2024-11-04] MEDS: fentaNYL 100 MCG/2 ML VIAL IJ ×2 (09:00→09:15)
[2024-11-04] MEDS: Nerve Block Tray 1 EACH MC (09:11)
[2024-11-04] MEDS: Lactated Ringers 500 ML 30 ML IV (09:12)
--- NOTE | 2024-11-04 09:35 | DI.RAD_ITS ---
Exam(s) XR PAIN CLINIC FLUORO JOINT IN EXAM: XR PAIN CLINIC FLUORO JOINT IN CLINICAL HISTORY: DX: Right Knee Osteoarthritis. TECHNIQUE: Fluoroscopy was provided for the referring physician for guidance with performing pain clinic injection procedure. COMPARISON: No exams were available for comparison FINDINGS: Please see procedure note for details. Fluoro time: 62.9 seconds RADIATION DOSE DELIVERED: tk Conley=7.2 mGy
[2024-11-04] MEDS: Bupivacaine 0.5% Pres-Free 10 ML VIAL IJ (09:39)
[2024-11-04] MEDS: Lidocaine 2% Multi-Dose 20 ML VIAL IJ (09:39)
[2024-11-04] MEDS: methylPREDNISolone ACETATE 40 MG/ML VIAL IJ (09:40)
--- NOTE | 2024-11-04 11:36 | PDOC.PAIN ---
Date of service: 11/04/24 Time of Service: 09:30 Pain Managment Procedure Note Procedure Note Procedure Note: PROCEDURE NOTE RIGHT GENICULAR NERVE RADIOFREQUENCY ABLATION Date of Service: November 04, 2024 Patient: Brandy Gao Provider: Evy Dick DO, MPH Brandy Gao has been referred to the [facility] for Right genicular nerve radiofrequency ablation with the AvNuVasives machine. Pre-operative diagnosis: Pain in right knee M25.561 Post-operative diagnosis: Same Pre-Procedure Pain: VAS=2-7/10 Comments: Previous genicular nerve blocks to the Right knee. PROCEDURE: 1. Superolateral genicular branch from the vastus lateralis 2. Superomedial genicular branch from the vastus medialis 3. Inferomedial genicular branch from the saphenous nerve 4. Terminal branch of the nerve vastus intermedius Brandy was interviewed and the medical record reviewed. There were no medical, pharmacologic, radiographic or other structural contraindications to attempting fluoroscopically guided Right genicular nerve radiofrequency ablation. Risks and potential side effects as well as potential benefit of the procedure were reviewed with Brandy Gao , and the patient's voiced concerns were addressed. After I believed that the patient was completely informed, the printed consent form was signed. Standard time-out procedure was performed. Brandy Gao was brought into brought to the procedure room and placed on the fluoroscopy table in a comfortable supine position and automated blood pressure cuff and pulse oximeter applied. A grounding pad was placed on the right ankle. The place for needle placement was obtained by manual palpation with radiographic confirmation. The skin entry points for approaching Right superolateral genicular nerve, the superomedial genicular nerve, nerve of the vastus intermedius and the inferomedial genicular was identified under the most advantageous fluoroscopic view and marked. Following thorough Chlorhexadine preparation of the skin and draping, 1% lidocaine infiltration of the skin entry point and subcutaneous tissues was accomplished using a 1.5 25G needle. Next, the 17G 100 mm radiofrequency cannula needle with a 4mm active tip was advanced to os at the location of the specific nerve roots (4) using fluoroscopic guidance. Next, motor testing was performed and no abnormal findings were found. Next, 1 cc of 2% Lidocaine was injected at each site after negative aspiration. The lesion was then created with 80 degrees Celsius for 2 minutes and 30 seconds each. 1/4 cc of Depo-Medrol (40 mg/cc) was then injected at each site followed by 1 cc of 0.5% Bupivacaine as the needle was withdrawn. There was no unusual discomfort expressed by Brandy. The needles were withdrawn without difficulty. Brandy was observed and was without hemodynamic, neurologic, or allergic reactions.? Fluoroscopic images were digitally archived. Brandy's vital signs were stable throughout the procedure and were as recorded in the docflowsheet by the nursing staff. If given, dosages of intravenous drugs for anxiolysis and analgesia were documented in MAR. POST PROCEDURE EVALUATION: IMPRESSION: 1. Medication given is documented in the MAR 2. Follow up plan: Brandy to contact [facility] as needed. This procedure may be repeated if the patient achieves at least 50% improvement in pain and/or function for at least 6 months. 3. Estimated Blood Loss: <5ml 4. Fluoroscopy time: Documented in the EMR Follow up plans and appointments were discussed with Brandy. Post procedure instruction was given as documented in nursing documentation and having met discharge criteria, Brandy was discharged from the [facility]. This advanced procedure uses cooled radiofrequency energy to safely target the sensory nerves responsible for sending pain signals.1 A radiofrequency generator transmits a small current of Radiofrequency energy through an insulated electrode, or probe, placed within tissue. Ionic heating, produced by the friction of charged molecules, thermally deactivates the nerves responsible for sending pain signals to the brain. Radiofrequency energy heats and cools the tissue at the site of pain. Unlike other Radiofrequency procedures, Coolief circulates water through the device while heating nervous tissue to create a larger treatment area, increasing the opportunity to help with pain. This combination targets the pain-transmitting nerves without excessive heating, leading to pain relief. COMMENTS: No apparent complications. Post-procedure pain: VAS= 0/10. Morin WJ1, Aubrey SJ, Heber JG, Antonino JG, Santo ALEXANDER, Park PH, Amos JW. Radiofrequency treatment relieves chronic knee osteoarthritis pain: a double-blind randomized controlled trial. Pain. 2010;152(3):481-7. doi: 10.1016/j.pain.2010.09.029. Zaina S1, Gilberto ON2, Juliette Y3, ?zl?lerden P2, Nasim U1, Zachary ?m?rl? I. Which one is more effective for the clinical treatment of chronic pain in knee osteoarthritis: radiofrequency neurotomy of the genicular nerves or intra-articular injection? Int J Rheum Dis. 2016 Oct 12. I personally completed the entire procedure. EVY DICK DO, MPH ABPM&R - Subspecialty board certification in Pain Medicine [facility] Coding Conscious Sedation used for procedure: No CPT Codes: Genicular 3-4 Nerve RFA - 41657O ([id number]~G) Additional Codes: Date of Service (10217) Date of service: 11/04/24 Diagnoses: Right knee osteoarthritis
== END 2024-11-04 07:44 | disposition home or self-care (01) ==
LOC: PC 07:43
PROVIDERS: PCP Pediatrics; Visit Provider Preventive Medicine Occupational Medicine
DX: M25.561 Pain in right knee (principal)
CPT/HCPCS: 64624; 77002; J0665; J1010; J2003; J2250; J3010

== ENCOUNTER 2024-11-12 21:24 | Emergency (ER) | payer MEDICARE, SELFPAY ==
[2024-11-12 21:22] VITALS: BP 132/78; PULSE 78; RESP 16; TEMP 36.7; O2SAT 98
--- NOTE | 2024-11-12 21:39 | W.ED.GENAD ---
Discharge Plan Disposition Patient Disposition: Home Condition: Stable Discharge Details Clinical Impression: Knee pain, right Primary Care Provider: Mariana Castellanos ED Provider: Daniel Mcnulty Home Meds and New Rx's Prescriptions: Continued albuterol sulfate 90 mcg/actuation HFA aerosol inhaler 2 puff inhalation Q6H PRN multivitamin [One Daily Multivitamin] Tablet 1 tab PO DAILY Eliquis 5 MG tablet 5 mg PO BID Qty: 60 0RF furosemide 20 mg tablet 40 mg PO DAILY metoprolol tartrate 100 mg tablet 50 mg PO BID omeprazole 20 mg capsule,delayed release(DR/EC) 20 mg PO DAILY escitalopram oxalate [Lexapro] 5 mg tablet 5 mg PO DAILY Discharge Instructions Additional Instructions: Wear the Remi bandage and keep your leg elevated can help with the pain and swelling. Follow-up with that your primary care provider for pain management. You can take 1000 mg of acetaminophen every 6 hours as needed, do not exceed 3000 mg in a 24-hour period. You can also try [id number] topical anti-inflammatories such as diclofenac. If you feel more ill or have sustained high fevers return to the emergency department for reevaluation. HPI General Mode of arrival: ambulatory. Date/Time Provider Initiated Documentation: 11/12/24 21:27. Limitations to Documentation: no limitations. Information obtained by: patient. History of Present Illness 74 year old F presents to the emergency department with the chief complaint of right knee pain, described as moderate, Patient started experiencing this day(s) (2) and it has been constant. No relieving factors improve symptom(s), No exacerbating factors reported . Patient notes no other symptoms.. Patient did receive the following treatments prior to arrival, none Related Data Home Medications ?Medication ?Instructions ?Recorded ?Confirmed apixaban 5 mg tablet (Eliquis) 5 mg PO BID #60 tabs 06/04/17 11/12/24 furosemide 20 mg tablet 40 mg PO DAILY 07/09/21 11/12/24 metoprolol tartrate 100 mg tablet 50 mg PO BID 07/09/21 11/12/24 albuterol sulfate 90 mcg/actuation 2 puff inhalation Q6H PRN 02/23/24 11/12/24 aerosol inhaler multivitamin (One Daily 1 tab PO DAILY 02/23/24 11/12/24 Multivitamin tablet) omeprazole 20 mg capsule,delayed 20 mg PO DAILY gastro issues 09/23/24 11/12/24 release escitalopram oxalate 5 mg tablet 5 mg PO DAILY 11/12/24 11/12/24 (Lexapro) Previous Rx's ?Medication ?Instructions ?Recorded apixaban 5 mg tablet (Eliquis) 5 mg PO BID #60 tabs 06/04/17 Allergies Allergy/AdvReac Type Severity Reaction Status Date / Time codeine AdvReac Mild Nausea Verified 11/12/24 21:26 General Stated Complaint: Orthopedic JESSICA: 4 Review of Systems All systems reviewed & are unremarkable except as noted in HPI and below Constitutional Constitutional: Denies chills, Denies fever(s) and Denies weakness Cardiovascular Cardiovascular: Denies chest pain and Denies dyspnea Respiratory Respiratory: Denies cough and Denies dyspnea Gastrointestinal Gastrointestinal: Denies abdominal pain, Denies nausea and Denies vomiting Musculoskeletal Musculoskeletal: Reports arthralgias Integumentary/Breasts Skin/Breast: Denies rash Neurologic Neurologic: Denies weakness Exam Const General: no acute distress Orientation: alert [facility] Head: normal to inspection Ears: external ears normal General nose exam: external nose normal Mouth: moist mucous membranes Eyes General: appearance normal, both eyes and all related structures Neck Neck: normal visual inspection Resp Effort & Inspection: normal respiratory effort and able to speak in complete sentences Cardio Rate: regular rate Skin General skin exam: no rashes or lesions noted Neuro General: patient alert and patient oriented x3 Extrem General: capillary refill normal Psych Mental Status: mental status grossly normal Course Vital Signs Vital signs: Vital Signs Temperature 36.7 C 11/12/24 21: Pulse 78 11/12/24 21:22 Respiratory Rate 16 11/12/24 21:22 Blood Pressure 132/78 11/12/24 21:22 Pulse Oximetry 98 11/12/24 21:22 Temperature 36.7 C 11/12/24 21:22 Pulse 78 11/12/24 21:22 Respiratory Rate 16 11/12/24 21:22 Blood Pressure 132/78 11/12/24 21:22 Pulse Oximetry 98 11/12/24 21:22 Medical Decision Making 74-year-old female with a history of osteoarthritis of both of her knees undergoing a radiofrequency ablation of the nerves of her right knee on November 04 comes in with right knee pain. She says that she was at an appointment at [facility] and was walking around and twisted her knee and had significant pain. She actually went to the ER at [facility] and states that she had a CT and an ultrasound done which did not show anything concerning other than a hematoma. She has not had any fevers or falls. She came in [facility] hoping to try and see Dr. Jean her pain management physician. Her right knee is not significantly swollen compared to the left. She does have bruising of the posterior right knee. She is able to fully range her knee. She has intact distal sensation and pulses. There is no erythema or warmth. I suspect she has a hematoma possibly a knee sprain. I offered to do x-rays but she declined that she had imaging done at [facility]. She has no findings on exam or history to suggest infectious etiology. Given is not significantly swollen compared to the left I doubt DVT and she says that she had an ultrasound at [facility] but did not show a blood clot. Give her a immobilizer but unfortunately the ones we have here do not fit her leg. I will provide her with an Remi bandage which she says is making her knee feel better. She will follow-up with her PCP or pain management. Return precautions given. Differential Diagnosis Differential Diagnosis: osteoarthritis, hematoma PFSH All Active Problems (Updated 11/12/24 @ 21:59 by Daniel Mcnulty MD) Knee pain, right (Acute) Hoarseness (Acute) Medical marijuana use (Acute) Swelling (Acute) Paroxysmal atrial fibrillation (Acute) Disorders of diaphragm (Acute) Morbid obesity with BMI of 45.0-49.9, adult (Acute) Osteoarthritis of both knees (Acute) Depression (Chronic) Asthma (Chronic) Hypertension (Acute) Atrial fibrillation (Chronic) Obesity (Chronic) Tendinitis of left rotator cuff (Acute) Primary osteoarthritis, left shoulder (Acute) Steroid injection: 07/09/2021; 10/12/2018 Primary osteoarthritis of right knee (Acute) Multiple injections previously including Synvisc and steroid injections Arthritis of left glenohumeral joint (Acute) Traumatic tear of right rotator cuff (Acute 04/11/22) s/p Right shoulder arthroscopy with RTC repair 06/27/22 Bursitis of right shoulder (Acute) Tendonitis of long head of biceps brachii of right shoulder (Acute) Medical History (Updated 11/12/24 @ 21:59 by Daniel Mcnulty MD) Hypercholesterolemia Chronic pain History of basal cell cancer MADHU (obstructive sleep apnea) [place] type IIa hyperlipoproteinemia 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 Surgical History History of tonsillectomy and adenoidectomy 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
[2024-11-12] MEDS: MORPHine IR 15 MG TAB, 4 TABS/BTL PO (22:58)
[2024-11-12] MEDS: Diclofenac 1% Gel 100 GM TUBE TP (23:01)
== END 2024-11-12 23:10 | disposition home or self-care (01) ==
PROVIDERS: Emergency Provider Emergency Medicine; PCP Pediatrics
DX: M25.561 Pain in right knee (principal)
CPT/HCPCS: 99283; 99282

== ENCOUNTER → 2025-01-04 13:54 | Outpatient (BNVA) | payer MEDICARE, SELFPAY | PROVIDERS: PCP Pediatrics; Referring Provider Pediatrics; Visit Provider Student in an Organized Health Care Education/Training Program | DX: M70.62 Trochanteric bursitis, left hip (principal); M76.02 Gluteal tendinitis, left hip | CPT/HCPCS: 99213; 20610; J1010 ==

== ENCOUNTER → 2025-02-11 01:27 | Outpatient (CLI) | payer MEDICARE, SELFPAY ==
--- NOTE | 2025-02-11 06:45 | DI.MRI_ITS ---
Exam(s) MR LOWER JOINT LT WO EXAM: MR LOWER JOINT LT WO CLINICAL HISTORY: L HIP PAIN,tendinopathy lt gluteus medius,trochanteric bursitis lt hip,m70. TECHNIQUE: Multiplanar multisequence MRI of the hip was performed. COMPARISON: CR XR HIPS BILAT MIN 2V EA from 12/13/2024 [facility] FINDINGS: MARROW:There is no evidence of fracture, bone contusion, nor avascular necrosis. There are no significant osseous lesions. HIP JOINT SPACE: No asymmetric hip joint effusions. The amount of fluid in both hip joints is equal and upper normal physiologic quantity. There are minimal osteoarthritic degenerative changes in the hips. No large chondral defects. No degenerative subarticular cysts. There are no osteophytes.There is no hypertrophy of the ligamentum teres nor signal abnormality at the fovea centralis. LABRUM: There is no evidence of obvious labral tear nor evidence of paralabral cyst. BURSAE: There is no evidence of trochanteric bursitis. There is no evidence of iliopsoas bursitis. TENDONS: There is significant focal signal abnormality at the gluteus medius tendon insertion upon the lateral trochanter of the left hip consistent with small focal partial tear at this level. There is no abnormal intraosseous signal in the adjacent greater trochanter. There is no evidence of trochanteric bursitis. ISCHIAL TUBEROSITY/HAMSTRING: There is no abnormal intraosseous signal in the ipsilateral ischial tuberosity nor tear of the common hamstrings tendon attachment site at this level. IMPRESSION: 1. Findings are consistent with small focal tear involving part of the gluteus medius tendon insertion upon the outer aspect of the greater trochanter of the left hip. Similar findings not seen in the opposite-right hip. 2. No evidence of labral tear and only very minimal osteoarthritic degenerative changes in hip joint.. DATA REPOSITORY:
== END ==
LOC: DI 01:27
PROVIDERS: PCP Pediatrics; Visit Provider Student in an Organized Health Care Education/Training Program
DX: M67.952 Unspecified disorder of synovium and tendon, left thigh (principal); M70.62 Trochanteric bursitis, left hip
CPT/HCPCS: 73721